=== PATIENT | female | born 1985 | race Caucasian/White ===

== ENCOUNTER 2019-05-09 17:05 | Emergency (ER) | payer OTHER ==
--- OUTSIDE RECORDS SUMMARY | 2019-05-09 17:17 | XMS REPORT | Continuity of Care Document ---
:1985 External Reference #:[id number] Author Name Verna Rolle MD Address [address] [place] [address] [place] [address] Care Team Providers Name Role Phone Joe Moreno MD Care Team Information Dental Office Assistant Unavailable Payers Date Identification Numbers Payment Provider Subscriber Policy Number: [id number] Annamaria Christopher PayID: [id number] [address] [place] [address] Problems Active Problems Provider Date Chronic ulcerative pancolitis Joe Moreno MD Onset: 05/01/2018 Social History Type Date Description Comments Sex Unknown Tobacco Use Start: Unknown Patient has never smoked Smoking Status Reviewed: 04/30/19 Patient has never smoked Allergies, Adverse Reactions, Alerts Active Allergies Reaction Severity Comments Date Imuran GI DISTRESS 05/01/2018 Clindamycin Phosphate ITCHING, RASH,SEVERE 05/01/2018 Gluten GI DISTRESS 05/01/2018 Iodine HIVES 05/01/2018 Penicillin RASH-MILD 05/01/2018 Zyrtec depression,anxiety,blurry vis, 05/01/2018 heart palpitation, breathing trouble,fatigue, menstruation change Medications Active Medications SIG Qnty Indications Ordering Date Provider Dicyclomine HCL as needed Unknown Vitamin D take 1 capsule by Unknown (Ergocalciferol) mouth Two Times Per Week [id number] Capsules [place] 3 Unknown Coq-10 Unknown Zinc 15 Unknown Digestive Enzymes Unknown Multivitamins Unknown Probiotic occasionally Unknown History Medications Zofran 1 tab by mouth 30tabs Joe Moreno, 07/12/2018 - 4mg Tablets every 8 hours as 04/29/2019 needed nausea Prednisone 3 by mouth every QS Joe Moreno, 05/29/2018 - 10mg day x 5 days, then 04/29/2019 Tablets 2 by mouth everyday x 5 days, then 1 by mouth every day x 5 days, 1 by mouth qod x 6 Prednisone 3 po q day x 5 QS Joe Moreno, 05/23/2018 - 10mg days, then 2 po 04/29/2019 Tablets qday x 5 days, then 1 po q day x 5 days, then 1 po qother day x 6 days, then stop Remicade 300 mg iv infusion Joe Moreno, 05/11/2018 - 100mg every 7 weeks slow 07/01/2018 Solution Rec infusion over 4 hours Vital Signs Date Vital Result Comment 04/30/2019 10:13am Height 61 inches 5'1" Weight 123.00 lb BP Systolic 104 mmHg BP Diastolic 74 mmHg Heart Rate 67 /min BMI (Body Mass Index) 23.2 kg/m2 05/01/2018 3:22pm Height 61 inches 5'1" Weight 122.00 lb BP Systolic 116 mmHg BP Diastolic 68 mmHg Heart Rate 68 /min BMI (Body Mass Index) 23.0 kg/m2 Results Test Date Facility Test Result H/L Range Note CBC Auto Diff 08/01/2018 [facility] White Blood Count 3.6 10^3/uL N 3.5-10.8 Red Blood Count 4.12 10^6/uL N 4.00-5.40 Hemoglobin 12.7 g/dL N 12.0-16.0 Hematocrit 36 % N 35-47 Mean Corpuscular Volume 86 fL N 80-97 Mean Corpuscular Hemoglobin 31 pg N 27-31 Mean Corpuscular HGB Conc 36 g/dL N 31-36 Red Cell Distribution Width 12 % N 10.5-15 Platelet Count 178 10^3/uL N 150-450 Mean Platelet Volume 8.8 um3 N 7.4-10.4 Abs Neutrophils 1.4 10^3/uL Low 1.5-7.7 Abs Lymphocytes 1.7 10^3/uL N 1.0-4.8 Abs Monocytes 0.3 10^3/uL N 0-0.8 Abs Eosinophils 0.1 10^3/uL N 0-0.6 Abs Basophils 0 10^3/uL N 0-0.2 Abs Nucleated RBC 0 10^3/uL Granulocyte % 38.5 % N 38-83 Lymphocyte % 48.0 % High 25-47 Monocyte % 9.0 % High 0-7 Eosinophil % 3.7 % N 0-6 Basophil % 0.8 % N 0-2 Nucleated Red Blood Cells % 0.1 Laboratory test finding 08/01/2018 [facility] Iron 111 g/dL N 50-212 C Reactive Protein < 1.00 mg/L N <8.01 Ferritin 31.1 ng/mL N 11-307 Encounters Type Date Location Provider Dx Diagnosis Office Visit 05/01/2018 G[facility]enter[facility] Joe Lopez K51.00 Ulcerative 3:[facility] MD Josh (chronic) pancolitis without complications Z79.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 She seems to be doing pretty well at this time. Her Remicade does seem to wear off a little early. We discussed increasing the dose frequency of the infusion. She would like to stay the course for right now. She does notmake any changes. She is up -to-date on blood work we will obtain that at her next Remicade infusionshe also is up-to-date on colonoscopies. I would like to see her back in approximately 6-9 months.She will call me with any questions concerns or changes. We will work on the prior [id number] Other predatory animal exterminator ( current) drug therapy
[2019-05-09 22:41] LABS: Urine Appearance Cloudy; Urine Bacteria 1+ (Absent); Urine Bilirubin Negative (Negative); Urine Blood 2+ (Negative); Urine Color Yellow; Urine Glucose Negative (Negative); Urine Ketones 2+ (Negative); Urine Nitrite Negative (Negative); Urine Protein Negative (Negative); Urine Red Blood Cell 1+(3-5/hpf) (Absent); Urine Specific Gravity 1.008 (1.010-1.030); Urine Squamous Epithelial Cell Present (Absent); Urine Urobilinogen Negative (Negative); Urine White Blood Cell Trace(0-5/hpf) (Absent)
[2019-05-09 23:19] LABS: Hematocrit 40 % (35-47); Hemoglobin 13.9 g/dL (12.0-16.0); Mean Corpuscular HGB Conc 35 g/dL (31-36); Mean Corpuscular Hemoglobin 31 pg (27-31); Mean Corpuscular Volume 88 fL (80-97); Mean Platelet Volume 9.1 fL (7.4-10.4); Platelet Count 170 10^3/uL (150-450); Red Blood Count 4.57 10^6 /uL (3.70-4.87); Red Cell Distribution Width 13 % (10-15); White Blood Count 2.2 10^3/uL (3.5-10.8)
[2019-05-09 23:36] LABS: ALT 39 U/L (7-52); AST 26 U/L (13-39); Albumin 4.6 g/dL (3.2-5.2); Albumin/Globulin Ratio 1.2 (1-3); Alkaline Phosphatase 62 U/L (34-104); Anion Gap 8 mmol/L (2-11); BUN/Creatinine Ratio 12.3 (8-20); Blood Urea Nitrogen 8 mg/dL (6-24); C Reactive Protein 8.82 mg/L (<8.01); CO2 Carbon Dioxide 24 mmol/L (22-32); Calcium 10.2 mg/dL (8.6-10.3); Chloride 105 mmol/L (101-111); EGFR African American 125.5 (>60); EGFR Non-African American 103.7 (>60); Globulin 3.7 g/dL (2-4); Glucose 105 mg/dL (70-100); Potassium 3.9 mmol/L (3.5-5.0); Sodium 137 mmol/L (135-145); Total Protein 8.3 g/dL (6.4-8.9)
[2019-05-09 23:43] LABS: HCG Pregnancy < 0.60 mIU/mL
[2019-05-10 00:21] LABS: ABS Eosinophils 0.1 10^3/ul (0-0.6); ABS Lymphocytes 1.2 10^3/ul (1.0-4.8); ABS Monocytes 0.4 10^3/ul (0-0.8); ABS Neutrophils 0.5 10^3/ul (1.5-7.7); Eosinophil % 3.4 %; Lymphocyte % 53.3 %; Nucleated Red Blood Cells % 0.1
--- NOTE | 2019-05-10 00:45 | ED ---
Complex/Multi-Sys Presentation - HPI Summary HPI Summary: Patient complains of diffuse abdominal pain 3 days, weakness, fever up to 101 2 days ago, joint pain 2 days ago, fatigue. Patient states she is feeling better today but has been having diarrhea 7-9 times today. Patient told to come to the ED due to routine labs of WBC 2.2 and absolute neutrophils 0.5. Patient has history of ulcerative colitis, Currently taking immunosuppressant entyvio. States this feels like UC flare. Denies cough, sore throat, CP, SOB, N/V/D, change in urine. - History Of Current Complaint Chief Complaint: EDGeneral Time Seen by Provider: 05/09/19 22:53 Hx Obtained From: Patient Onset/Duration: Gradual Onset, Lasting Days Timing: Intermittent, Lasting: Severity Currently: Moderate Severity Initially: Moderate Associated Signs And Symptoms: Positive: Weakness, Abdominal Pain, Fever - Allergies/Home Medications Allergies/Adverse Reactions: Allergies Allergy/AdvReac Type Severity Reaction Status Date / Time cetirizine [From [facility]] Allergy Tachycardia Verified 12/10/18 10:28 clindamycin Allergy Rash Verified 12/10/18 10:28 gluten Allergy Headache Verified 12/10/18 10:28 iodine Allergy Hives Verified 12/10/18 10:28 Penicillins Allergy Rash Verified 12/10/18 10:28 Home Medications: Home Medications Multivitamin [Multivitamins] 1 tab PO DAILY 05/09/19 [History Confirmed 05/09/19 ] PMH/Surg Hx/FS Hx/Imm Hx Endocrine/Hematology History: Denies: Hx Diabetes Cardiovascular History: Denies: Hx Hypertension, Hx Pacemaker/ICD History: Denies: Hx Renal Disease Sensory History: Denies: Hx Hearing Aid Opthamlomology History: Denies: Hx Legally Blind EENT History: Denies: Hx Deafness Neurological History: Denies: Hx Dementia Psychiatric History: Denies: Hx Panic Disorder Infectious Disease History: No Infectious Disease History: Denies: Traveled Outside the [place] in Last 30 Days - Family History Known Family History: Positive: Non-Contributory - Social History Alcohol Use: None Substance Use Type: Reports: None Smoking Status (MU): Never Smoked Tobacco Have You Smoked in the Last Year: No Review of Systems Positive: Fever Eyes: Negative ENT: Negative Cardiovascular: Negative Respiratory: Negative Positive: Abdominal Pain Genitourinary: Negative Musculoskeletal: Negative Skin: Negative Neurological: Negative Psychological: Normal All Other Systems Reviewed And Are Negative: Yes Physical Exam - Summary Physical Exam Summary: Abdomen soft nontender. Triage Information Reviewed: Yes Vital Signs On Initial Exam: Initial Vitals Temp Pulse Resp BP Pulse Ox 99.1 F 84 18 126/72 99 05/09/19 17:09 05/09/19 17:09 05/09/19 17:09 05/09/19 17:09 05/09/19 17:09 Vital Signs Reviewed: Yes Appearance: Positive: Well-Appearing Skin: Positive: Warm Head/Face: Positive: Normal Head/Face Inspection Eyes: Positive: Normal Neck: Positive: Supple Respiratory/Lung Sounds: Positive: Clear to Auscultation Cardiovascular: Positive: Normal Abdomen Description: Positive: Nontender Musculoskeletal: Positive: Normal Neurological: Positive: Normal Psychiatric: Positive: Normal AVPU Assessment: Alert - Dori Coma Scale Best Eye Response: 4 - Spontaneous Best Motor Response: 6 - Obeys Commands Best Verbal Response: 5 - Oriented Coma Scale Total: 15 Diagnostics - Vital Signs Vital Signs Temp Pulse Resp BP Pulse Ox 05/10/19 00:00 78 99 05/09/19 23:40 78 112/72 99 05/09/19 23:10 118/67 05/09/19 23:00 99 100 05/09/19 22:40 79 113/58 99 05/09/19 22:10 88 116/74 99 05/09/19 20:40 99.2 F 91 16 124/71 100 05/09/19 18:49 98.0 F 69 18 126/75 99 05/09/19 17:09 99.1 F 84 18 126/72 99 - Laboratory Lab Results: Lab Results 05/09/19 05/09/19 05/09/19 Range/Units 22:27 23:09 23:09 WBC 2.2 L (3.5-10.8) 10^3/uL RBC 4.57 (3.70-4.87) 10^6 /uL Hgb 13.9 (12.0-16.0) g/dL Hct 40 (35-47) % MCV 88 (80-97) fL MCH 31 (27-31) pg MCHC 35 (31-36) g/dL RDW 13 (10-15) % Plt Count 170 (150-450) 10^3/uL MPV 9.1 (7.4-10.4) fL Neut % (Auto) 24.6 % Lymph % (Auto) 53.3 % [place] % (Auto) 17.6 % Eos % (Auto) 3.4 % Baso % (Auto) 1.1 % Absolute Neuts (auto) 0.5 L* (1.5-7.7) 10^3/ul Absolute Lymphs (auto) 1.2 (1.0-4.8) 10^3/ul Absolute Monos (auto) 0.4 (0-0.8) 10^3/ul Absolute Eos (auto) 0.1 (0-0.6) 10^3/ul Absolute Basos (auto) 0.0 (0-0.2) 10^3/ul Absolute Nucleated RBC 0.0 10^3/ul Nucleated RBC % 0.1 Sodium 137 (135-145) mmol/L Potassium 3.9 (3.5-5.0) mmol/L Chloride 105 (101-111) mmol/L Carbon Dioxide 24 (22-32) mmol/L Anion Gap 8 (2-11) mmol/L BUN 8 (6-24) mg/dL Creatinine 0.65 (0.51-0.95) mg/dL Est GFR ( Amer) 125.5 (>60) Est GFR (Non-Af Amer) 103.7 (>60) BUN/Creatinine Ratio 12.3 (8-20) Glucose 105 H (70-100) mg/dL Lactic Acid (0.5-2.0) mmol/L Calcium 10.2 (8.6-10.3) mg/dL Total Bilirubin 0.60 (0.2-1.0) mg/dL AST 26 (13-39) U/L ALT 39 (7-52) U/L Alkaline Phosphatase 62 (34-104) U/L C-Reactive Protein 8.82 H (<8.01) mg/L Total Protein 8.3 (6.4-8.9) g/dL Albumin 4.6 (3.2-5.2) g/dL Globulin 3.7 (2-4) g/dL Albumin/Globulin Ratio 1.2 (1-3) Lipase 12 (11.0-82.0) U/L Beta HCG, Quant < 0.60 mIU/mL Urine Color Yellow Urine Appearance Cloudy Urine pH 6.0 (5-9) Ur Specific [place] 1.008 L (1.010-1.030) Urine Protein Negative (Negative) Urine Ketones 2+ A (Negative) Urine Blood 2+ A (Negative) Urine Nitrate Negative (Negative) Urine Bilirubin Negative (Negative) Urine Urobilinogen Negative (Negative) Ur Leukocyte Esterase Negative (Negative) Urine WBC (Auto) Trace(0-5/hpf) (Absent) Urine RBC (Auto) 1+(3-5/hpf) A (Absent) Ur Squamous Epith Cells Present A (Absent) Urine Bacteria 1+ A (Absent) Urine Glucose Negative (Negative) 05/09/19 Range/Units 23:09 WBC (3.5-10.8) 10^3/uL RBC (3.70-4.87) 10^6 /uL Hgb (12.0-16.0) g/dL Hct (35-47) % MCV (80-97) fL MCH (27-31) pg MCHC (31-36) g/dL RDW (10-15) % Plt Count (150-450) 10^3/uL MPV (7.4-10.4) fL Neut % (Auto) % Lymph % (Auto) % [place] % (Auto) % Eos % (Auto) % Baso % (Auto) % Absolute Neuts (auto) (1.5-7.7) 10^3/ul Absolute Lymphs (auto) (1.0-4.8) 10^3/ul Absolute Monos (auto) (0-0.8) 10^3/ul Absolute Eos (auto) (0-0.6) 10^3/ul Absolute Basos (auto) (0-0.2) 10^3/ul Absolute Nucleated RBC 10^3/ul Nucleated RBC % Sodium (135-145) mmol/L Potassium (3.5-5.0) mmol/L Chloride (101-111) mmol/L Carbon Dioxide (22-32) mmol/L Anion Gap (2-11) mmol/L BUN (6-24) mg/dL Creatinine (0.51-0.95) mg/dL Est GFR ( Amer) (>60) Est GFR (Non-Af Amer) (>60) BUN/Creatinine Ratio (8-20) Glucose (70-100) mg/dL Lactic Acid 0.8 (0.5-2.0) mmol/L Calcium (8.6-10.3) mg/dL Total Bilirubin (0.2-1.0) mg/dL AST (13-39) U/L ALT (7-52) U/L Alkaline Phosphatase (34-104) U/L C-Reactive Protein (<8.01) mg/L Total Protein (6.4-8.9) g/dL Albumin (3.2-5.2) g/dL Globulin (2-4) g/dL Albumin/Globulin Ratio (1-3) Lipase (11.0-82.0) U/L Beta HCG, Quant mIU/mL Urine Color Urine Appearance Urine pH (5-9) Ur Specific [place] (1.010-1.030) Urine Protein (Negative) Urine Ketones (Negative) Urine Blood (Negative) Urine Nitrate (Negative) Urine Bilirubin (Negative) Urine Urobilinogen (Negative) Ur Leukocyte Esterase (Negative) Urine WBC (Auto) (Absent) Urine RBC (Auto) (Absent) Ur Squamous Epith Cells (Absent) Urine Bacteria (Absent) Urine Glucose (Negative) Result Diagrams: 05/09/19 23:09 05/09/19 23:09 Lab Statement: Any lab studies that have been ordered have been reviewed, and results considered in the medical decision making process. Complex Multi-Symp Course/Dx Course Of Treatment: Patient complains of diffuse abdominal pain 3 days, weakness, fever up to 101 2 days ago, joint pain 2 days ago, fatigue. Patient states she is feeling better today but has been having diarrhea 7-9 times today. Patient told to come to the ED due to routine labs of WBC 2.2 and absolute neutrophils 0.5. Patient has history of ulcerative colitis, Currently taking immunosuppressant entyvio. States this feels like UC flare. Denies cough, sore throat, CP, SOB, N/V/D, change in urine. Vital signs within normal limits. WBC 2.2. Absolute neutrophils 0.5. Labs otherwise unremarkable. Discussed case with GI construction equipment mechanic Dr. Moreno who stated patient could be discharged and follow-up in clinic tomorrow due to physical exam and patient having no active symptoms. - Diagnoses Provider Diagnoses: Diarrhea, Fatigue, Joint pain Discharge - Sign-Out/Discharge Documenting (check all that apply): Patient Departure Patient Received Moderate/Deep Sedation with Procedure: No - Discharge Plan Condition: Stable Disposition: HOME Prescriptions: Ondansetron ODT TAB* [Zofran 4 MG Odt TAB*] 4 mg PO Q8H PRN 4 Days #14 tab.odt PRN Reason: Nausea Patient Education Materials: Ulcerative Colitis (ED) Referrals: Rena Lai, DIE CASTING MACHINE OPERATOR [Primary Care Provider] - Additional Instructions: Follow-up with Dr. Rolle in the morning. Return to the ED for any new or worsening symptoms. - Billing Disposition and Condition Condition: STABLE Disposition: Home
[2019-05-10 00:56] VITALS: BP 127/76
== END 2019-05-10 00:55 | disposition home or self-care (01) ==
LOC: ED 17:05
DX: R19.7 Diarrhea, unspecified (principal); R53.83 Other fatigue; M25.50 Pain in unspecified joint; Z79.899 Other long term (current) drug therapy; Z88.0 Allergy status to penicillin; Z88.1 Allergy status to other antibiotic agents; Z91.041 Radiographic dye allergy status
CPT/HCPCS: 36415; 80053; 81003; 81015; 82270; 83605; 83690; 84702; 85025; 86140; 87040; 87086; 99283

== ENCOUNTER 2019-12-03 10:10 | Inpatient (IN) | payer OTHER ==
--- OUTSIDE RECORDS SUMMARY | 2019-12-03 10:20 | XMS REPORT | Continuity of Care Document ---
:1985 External Reference #:[id number] Author Name Verna Rolle MD Address [address] [place] [id number] Care Team Providers Name Role Phone Rena Lai NP Care Team Information Loss Prevention Manager [phone] Problems Active Problems Provider Date Chronic ulcerative pancolitis Joe Moreno MD Onset: 05/01/2018 Social History Type Date Description Comments Sex Unknown Tobacco Use Start: Unknown Patient has never smoked Smoking Status Reviewed: 08/05/19 Patient has never smoked Allergies, Adverse Reactions, Alerts Active Allergies Reaction Severity Comments Date Imuran GI DISTRESS 05/01/2018 Clindamycin Phosphate ITCHING, RASH,SEVERE 05/01/2018 Gluten GI DISTRESS 05/01/2018 Iodine HIVES 05/01/2018 Penicillin RASH-MILD 05/01/2018 Zyrtec depression,anxiety,blurry vis, 05/01/2018 heart palpitation, breathing trouble,fatigue, menstruation change Medications Active Medications SIG Qnty Indications Ordering Date Provider Tramadol HCL Take 1 tablet every 20tabs Verna 08/05/2019 50mg 6 hours as needed MD Sariah Tablets for moderate to severe pain Entyvio every 6 weeks Verna 07/15/2019 300mg Solution MD Sariah Rec Dicyclomine HCL as needed Unknown Vitamin D take 1 capsule by Unknown (Ergocalciferol) mouth Two Times Per Week [id number] Capsules [place] 3 Unknown Coq-10 Unknown Zinc 15 Unknown Digestive Enzymes Unknown Multivitamins Unknown Probiotic occasionally Unknown History Medications Suprep Bowel Prep Kit as directed 1units Verna 06/25/2019 - MD Sariah 08/05/2019 17.5-3.13-1.6GM/177ML Solution Immunizations Description No Information Available Vital Signs Date Vital Result Comment 08/05/2019 2:34pm Height 61 inches 5'1" Weight 120.00 lb BP Systolic 121 mmHg BP Diastolic 75 mmHg Heart Rate 76 /min BMI (Body Mass Index) 22.7 kg/m2 04/30/2019 10:13am Height 61 inches 5'1" Weight 123.00 lb BP Systolic 104 mmHg BP Diastolic 74 mmHg Heart Rate 67 /min BMI (Body Mass Index) 23.2 kg/m2 Results Test Acquired Date Facility Test Result H/L Range Note Laboratory test 08/08/2019 [facility] Calprotectin <15.6 1, 2 finding g/G Laboratory test 07/11/2019 [facility] Surgical SEE RESULT 3, 4 finding Pathology Order BELOW CBC Auto Diff 05/16/2019 [facility] White Blood Count 6.1 Normal 3.5-10.8 10^3/uL Red Blood Count 4.30 10^6/uL Normal 3.70-4.87 Hemoglobin 13.1 g/dL Normal 12.0-16.0 Hematocrit 37 % Normal 35-47 Mean Corpuscular Volume 87 fL Normal 80-97 Mean Corpuscular Hemoglobin 31 pg Normal 27-31 Mean Corpuscular HGB Conc 35 g/dL Normal 31-36 Red Cell Distribution Width 12 % Normal 10-15 Platelet Count 221 10^3/uL Normal 150-450 Mean Platelet Volume 9.7 fL Normal 7.4-10.4 Abs Neutrophils 2.6 10^3/uL Normal 1.5-7.7 Abs Lymphocytes 2.9 10^3/uL Normal 1.0-4.8 Abs Monocytes 0.5 10^3/uL Normal 0-0.8 Abs Eosinophils 0.2 10^3/uL Normal 0-0.6 Abs Basophils 0.0 10^3/uL Normal 0-0.2 Abs Nucleated RBC 0.0 10^3/uL Granulocyte % 41.9 % Lymphocyte % 46.9 % Monocyte % 7.8 % Eosinophil % 2.8 % Basophil % 0.6 % Nucleated Red Blood Cells % 0.2 CBC W/Auto Differential(!) 05/11/2019 [facility] White Blood 2.6 10^3/uL Low 3.5 -10.8 Count Red Blood Count 4.50 10^6/uL Normal 3.70-4.87 Hemoglobin 14.0 g/dL Normal 12.0-16.0 Hematocrit 39 % Normal 35-47 Mean Corpuscular Volume 87 fL Normal 80-97 Mean Corpuscular Hemoglobin 31 pg Normal 27-31 Mean Corpuscular HGB Conc 36 g/dL Normal 31-36 Red Cell Distribution Width 12 % Normal 10-15 Platelet Count 175 10^3/uL Normal 150-450 Mean Platelet Volume 9.8 fL Normal 7.4-10.4 Abs Neutrophils 0.7 10^3/uL Critical low 1.5-7.7 5 Abs Lymphocytes 1.4 10^3/uL Normal 1.0-4.8 Abs Monocytes 0.4 10^3/uL Normal 0-0.8 Abs Eosinophils 0.1 10^3/uL Normal 0-0.6 Abs Basophils 0.0 10^3/uL Normal 0-0.2 Abs Nucleated RBC 0.0 10^3/uL Granulocyte % 26.9 % Lymphocyte % 53.0 % Monocyte % 14.8 % Eosinophil % 4.3 % Basophil % 1.0 % Nucleated Red Blood Cells % 0.1 Herpes Simplex Type 1&2 05/11/2019 [facility] Herpes Simplex Virus I Negative Negative Igg IgG AB Herpes Simplex Virus II IgG AB Negative Negative 6 Laboratory 05/11/2019 [facility] CMV By PCR Undetected Undetected 7 test finding IU/mL Ebv Dna 05/11/2019 [facility] [place] Undetected Undetected 8 Virus Dna (PCR) IU/mL Laboratory 05/09/2019 [facility] Calprotectin 372 g/G Abnormal 9, 10 test finding 1 [id number] 2 REFERENCE VALUE <=50.0 (Normal) Test Performed by: [facility] [address] [place] [address] Nutritional Services Host: Sánchez Mckenzie M.D. Ph.D.; CLIA# [id number] SEE RESULT BELOW Name: CASIE CHRISTOPHER : [address]: Verna Rolle MD Acct: [id number] Unit: [id number] AGE: 34 Location: [facility] Re07/11/19 SEX: F Status: DEP REF SPEC: [id number] KYLAH: 07/11/19 [facility] DR: Verna De La Fuente MD REQ: [id number] RECD: 07/11/19 STATUS: IRVIN CRAIG DR: Rena Lai GOLD LEAF GILDER _ ORDERED: LEVEL 4/5 COMMENTS: [id number] FINAL DIAGNOSIS 1. Colon, right, biopsy: -- Chronic, inactive colitis. -- Dysplasia is absent. 2. Colon, transverse, biopsy: -- Chronic, active colitis. -- Dysplasia is absent. 3. Colon, descending, biopsy: -- Chronic, inactive colitis. -- Dysplasia is absent. 4. Colon, sigmoid, biopsy: -- Chronic, inactive colitis. -- Dysplasia is absent. 5. Colon, rectum, biopsy: -- Chronic, active colitis. -- Dysplasia is absent. COMMENT: Histologic sections from throughout the colon show crypt architectural distortion and increased lamina propria inflammatory infiltrate cellularity. Acute cryptitis is seen in sections from the transverse and rectum. Granulomata are not seen. Dysplasia is absent. The findings are those of an inflammatory bowel disease and are compatible with the patient's known history of ulcerative colitis. CLINICAL HISTORY Screening/Surveillance for malignancy in asymptomatic patient; ulcerative colitis CONTINUED ON NEXT PAGE DEPARTMENT OF PATHOLOGY, [address] [place] [address] Elian Callejas M.D. Director [facility] # [id number] POST-OPERATIVE DIAGNOSIS Colonoscopy: to terminal ileum; biopsy approximately 15 cm ??? anus mild erythema bluming vascularity GROSS DESCRIPTION 1. The specimen is received in formalin labeled, Right Colon Biopsy, and consists of a 0.6 x 0.4 by up to 0.2 cm aggregate of acevedo-pink irregular soft tissue fragments which is submitted entirely in one cassette. 2. The specimen is received in formalin labeled, Transverse Colon Biopsy, and consists of two acevedo irregular soft tissue fragments measuring 0.2 x 0.2 x 0.2 cm and 0.6 x 0.2 x 0.1 cm which are submitted entirely in one cassette. 3. The specimen is received in formalin labeled, Descending Colon Biopsy, and consists of a 0.6 x 0.4 up to 0.2 cm aggregate of acevedo irregular soft tissue fragments which is submitted entirely in one cassette. 4. The specimen is received in formalin labeled, Sigmoid Colon Biopsy, and consists of a 0.7 x 0.4 x 0.2 cm aggregate of acevedo-pink irregular soft tissue fragments which is submitted entirely in one cassette. 5. The specimen is received in formalin labeled, Rectal Biopsy, and consists of a 0.8 x 0.8 x 0.1 cm aggregate of acevedo-red irregular soft tissue fragments which is submitted entirely in one cassette. Signed by and Reported on: Katiuska Zaman MD 07/12/19 1138 END OF REPORT DEPARTMENT OF PATHOLOGY, [address] [place] [address] Elian Callejas M.D. Director [facility] # [id number] SEE RESULT BELOW Name: CASIE CHRISTOPHER : [address]: Verna Rolle MD Acct: [id number] Unit: [id number] AGE: 34 Location: [facility] Re07/11/19 SEX: F Status: DEP REF SPEC: [id number] KYLAH: 07/11/[address]: Verna De La Fuente MD REQ: [id number] RECD: 07/11/19-1314 STATUS: IRVIN CRAIG DR: Rena Lai GOLD LEAF GILDER _ ORDERED: LEVEL 4/5 COMMENTS: [id number] FINAL DIAGNOSIS 1. Colon, right, biopsy: -- Chronic, inactive colitis. -- Dysplasia is absent. 2. Colon, transverse, biopsy: -- Chronic, active colitis. -- Dysplasia is absent. 3. Colon, descending, biopsy: -- Chronic, inactive colitis. -- Dysplasia is absent. 4. Colon, sigmoid, biopsy: -- Chronic, inactive colitis. -- Dysplasia is absent. 5. Colon, rectum, biopsy: -- Chronic, active colitis. -- Dysplasia is absent. COMMENT: Histologic sections from throughout the colon show crypt architectural distortion and increased lamina propria inflammatory infiltrate cellularity. Acute cryptitis is seen in sections from the transverse and rectum. Granulomata are not seen. Dysplasia is absent. The findings are those of an inflammatory bowel disease and are compatible with the patient's known history of ulcerative colitis. CLINICAL HISTORY Screening/Surveillance for malignancy in asymptomatic patient; ulcerative colitis CONTINUED ON NEXT PAGE DEPARTMENT OF PATHOLOGY, [facility] [place], [place] [address] Elian Callejas M.D. Director [facility] # [id number] POST-OPERATIVE DIAGNOSIS Colonoscopy: to terminal ileum; biopsy approximately 15 cm ??? anus mild erythema bluming vascularity GROSS DESCRIPTION 1. The specimen is received in formalin labeled, Right Colon Biopsy, and consists of a 0.6 x 0.4 by up to 0.2 cm aggregate of acevedo-pink irregular soft tissue fragments which is submitted entirely in one cassette. 2. The specimen is received in formalin labeled, Transverse Colon Biopsy, and consists of two acevedo irregular soft tissue fragments measuring 0.2 x 0.2 x 0.2 cm and 0.6 x 0.2 x 0.1 cm which are submitted entirely in one cassette. 3. The specimen is received in formalin labeled, Descending Colon Biopsy, and consists of a 0.6 x 0.4 up to 0.2 cm aggregate of acevedo irregular soft tissue fragments which is submitted entirely in one cassette. 4. The specimen is received in formalin labeled, Sigmoid Colon Biopsy, and consists of a 0.7 x 0.4 x 0.2 cm aggregate of acevedo-pink irregular soft tissue fragments which is submitted entirely in one cassette. 5. The specimen is received in formalin labeled, Rectal Biopsy, and consists of a 0.8 x 0.8 x 0.1 cm aggregate of acevedo-red irregular soft tissue fragments which is submitted entirely in one cassette. Signed by and Reported on: Katiuska Zaman MD 07/12/19 1138 END OF REPORT DEPARTMENT OF PATHOLOGY, [facility] [place], [place] [address] Elian Callejas M.D. Director [facility] # [id number] 5 Consistent with Previous Results Reported on 05/09/19 Critical Result NE#:0.7 Called to and read back by DR MESA at: 05/11/2019 14:31:50 by:[id number] 6 Test Performed by: [facility] [place] [address] 7 Result in log IU/mL is Undetected. ADDITIONAL INFORMATION The quantification range of this assay is 35 to 10,000,000 IU/mL (1.54 log to 7.00 log IU/mL). Testing was performed using the makayla CMV test ([employer] with the makayla 6800 System. Test Performed by: [facility] [place] [address] 8 Result in log IU/mL is Undetected. EBV DNA is not detected. ADDITIONAL INFORMATION This laboratory-developed, real-time PCR assay has a quantification range of 100 to 5,000,000 IU/mL (2.00 log IU/mL to 6.70 log IU/mL). This test was developed using an analyte specific reagent. Its performance characteristics were determined by [facility] in a manner consistent with CLIA requirements. This test has not been cleared or approved by the U.S. Food and Drug Administration. Test Performed by: [facility] - [address] [address] 9 [id number] Interpretation: Abnormal (>120.0 mcg/g) REFERENCE VALUE <=50.0 (Normal) Test Performed by: [place] [address] Procedures Date Code Description Status 07/11/2019 07427 Moderate Sedation Services; Same Phys Each Additional 15 Completed Mins 07/11/2019 58416 Moderate Sedation Services; Same Phys Intl 15 Mins; PT >= Completed 5 Years 07/11/2019 16376 Colonscopy+Biopsy Completed Medical Devices Description No Information Available Encounters Type Date Location Provider Dx Diagnosis Office Visit 08/05/2019 Gastroenterology Verna K51.00 Ulcerative 2:30p [facility] Sariah (chronic) pancolitis without complications M13.89 Other specified arthritis, multiple sites Assessments Date Code Description Provider 08/05/2019 K51.00 Ulcerative (chronic) pancolitis without Verna De La Fuente MD complications 08/05/2019 M13.89 Other specified arthritis, multiple sites Verna De La Fuente MD 07/11/2019 K51.90 Ulcerative colitis, unspecified, without Verna De La Fuente MD complications 05/16/2019 D70.9 Neutropenia, unspecified Verna Rolle MD 05/16/2019 K51.00 Ulcerative (chronic) pancolitis without Verna De La Fuente MD complications Plan of Treatment Future Appointment(s):11/18/2019 2:30 pm - [facility]08/05/2019 - Verna Rolle MDK51.00 Ulcerative (chronic) pancolitis without dlaitdlrgmdldS76.89 Other specified arthritis, multiple sites Functional Status Description No Information Available Mental Status Description No Information Available Referrals Description No Information Available
--- OUTSIDE RECORDS SUMMARY | 2019-12-03 10:21 | XMS REPORT | Continuity of Care Document ---
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 [phone] Problems Description No Information Available Social History Type Date Description Comments Sex Unknown Tobacco Use Start: Unknown Never Smoked Cigarettes Smoking Status Reviewed: 10/08/19 Never Smoked Cigarettes ETOH Use Denies alcohol use Tobacco Use Start: Unknown Patient has never smoked Recreational Drug Use Denies Drug Use Exercise Type/Frequency Exercises sporadically walking, yoga Allergies, Adverse Reactions, Alerts Active Allergies Reaction Severity Comments Date Penicillin 11/19/[address] Dye Only 11/19/2018 Clindamycin 11/19/2018 Zyrtec 11/19/2018 Gluten 11/19/2018 Imuran 12/14/2018 Medications Active Medications SIG Qnty Indications Ordering Provider Date Loseasonique one tabelt by 90tabs María Elena Mathew MD 09/06/2019 mouth daily 0.1-0.02&0.01mg Tablets Entyvio infuse 300mg iv Unknown 300mg Solution per infusion Rec guide lines every [address] Baxter Zinc 2 tablets per day Unknown Carnosire D 1000 one capsule by Unknown 1000Unit Tablets mouth daily Al Foods Women's daily Unknown Daily Vitamin [place] 3 Unknown 1000mg Capsules Probiotic 1 by mouth every Unknown Capsules day Digestive Enzyme Unknown Co Q 10 1 by mouth every Unknown 60mg Capsules day as needed Immunizations Description No Information Available Vital Signs Date Vital Result Comment 10/08/2019 7:48am Height 61.4 inches 5'1.40" Weight 121.00 lb Heart Rate 72 /min BP Systolic 102 mmHg BP Diastolic 71 mmHg Body Temperature 97.1 F Pain Level 5 O2 % BldC Oximetry 100 % BMI (Body Mass Index) 22.6 kg/m2 07/05/2019 2:03pm Height 61.4 inches 5'1.40" Weight 117.00 lb Heart Rate 70 /min BP Systolic 96 mmHg BP Diastolic 64 mmHg O2 % BldC Oximetry 100 % BMI (Body Mass Index) 21.8 kg/m2 Last Menstrual Period [id number] Results Test Acquired Date Facility Test Result H/L Range Note Laboratory test 07/05/2019 [facility] Cytology SEE RESULT [address] [place] [address] [phone] Thyroid Panel 06/28/2019 [facility] Free T4 (Free 1.07 ng/dL Normal 0.61-1.[address] [place]roxine) [place] [address] [phone] Thyroxine 9.82 g/dL Normal 6.09-12.23 TSH (Thyroid Stim Horm) 1.24 mcIU/mL Normal 0.34-5.60 Laboratory test 06/28/2019 [facility] Thyroglobulin AB 187.1 High <4.[address] IU/[place] [address] [phone] T3 Free 3.20 pg/mL Normal 2.5-3.9 T3 Reverse 23 ng/dL 10-24 2 T3 Total 126 ng/dL Normal 87-178 CRP High Sensitivity 4.69 mg/L High <2.00 Laboratory test 05/09/2019 [facility] C Reactive 12.27 mg/L High <8.01 [address] [place] [address] [phone] CBC Auto Diff 05/09/2019 [facility] White Blood 2.0 Low 3.5- 10.[address] Count 10^3/[place] [address] [phone] Red Blood Count 4.43 10^6/uL Normal 3.70-4.87 Hemoglobin 13.7 g/dL Normal 12.0-16.0 Hematocrit 39 % Normal 35-47 Mean Corpuscular Volume 87 fL Normal 80-97 Mean Corpuscular Hemoglobin 31 pg Normal 27-31 Mean Corpuscular HGB Conc 36 g/dL Normal 31-36 Red Cell Distribution Width 12 % Normal 10-15 Platelet Count 164 10^3/uL Normal 150-450 Mean Platelet Volume 9.7 fL Normal 7.4-10.4 Abs Neutrophils 0.4 10^3/uL Critical low 1.5-7.7 4 Abs Lymphocytes 1.1 10^3/uL Normal 1.0-4.8 Abs Monocytes 0.3 10^3/uL Normal 0-0.8 Abs Eosinophils 0.1 10^3/uL Normal 0-0.6 Abs Basophils 0.0 10^3/uL Normal 0-0.2 Abs Nucleated RBC 0.0 10^3/uL Granulocyte % 18.6 % Lymphocyte % 57.2 % Monocyte % 17.2 % Eosinophil % 6.2 % Basophil % 0.8 % Nucleated Red Blood Cells % 0.3 Comp Metabolic 05/09/2019 [facility] Sodium 139 mmol/L Normal 135-[address] [place] [address] [phone] Potassium 3.8 mmol/L Normal 3.5-5.0 Chloride 107 mmol/L Normal 101-111 Co2 Carbon Dioxide 24 mmol/L Normal 22-32 Anion Gap 8 mmol/L Normal 2-11 Glucose 89 mg/dL Normal 70-100 Blood Urea Nitrogen 12 mg/dL Normal 6-24 Creatinine 0.57 mg/dL Normal 0.51-0.95 BUN/Creatinine Ratio 21.1 High 8-20 Calcium 10.1 mg/dL Normal 8.6-10.3 Total Protein 7.7 g/dL Normal 6.4-8.9 Albumin 4.4 g/dL Normal 3.2-5.2 Globulin 3.3 g/dL Normal 2-4 Albumin/Globulin Ratio 1.3 Normal 1-3 Total Bilirubin 0.70 mg/dL Normal 0.2-1.0 Alkaline Phosphatase 63 U/L Normal 34-104 Alt 37 U/L Normal 7-52 Ast 27 U/L Normal 13-39 Egfr Non- 120.7 >60 Egfr 146.1 >60 5 Laboratory test 05/09/2019 [facility] Pathologist Review (SEE NOTE) [address] [place] [address] [phone] Laboratory test 04/23/2019 [facility] Progesterone 7.2 ng/mL [address] [place] [address] [phone] Estradiol 124 pg/mL 8 Testosterone Free 04/23/2019 [facility] Free 0.18 0.06-1.00 9 & Total [address] Testosterone ng/[place] [address] ng/dl [phone] Testosterone 14 ng/dL 8-60 10 1 SEE RESULT BELOW Name: CASIE CHRISTOPHER : [address]: María Elena Mathew MD Acct: [id number] Unit: [id number] AGE: 34 Location: [facility] Re07/05/19 SEX: F Status: REG REF SPEC: [id number] KYLAH: 07/05/[address]: María Elena Mathew MD REQ: [id number] RECD: 07/05/19 STATUS: SOUT _ ORDERED: TP IMAGE ANALYS, HPV/Thin Prep, HPV 16/18 GENE COMMENTS: [id number] Negative for Intraepithelial lesion or Malignancy Date Time Test Result Flag (u) Normal Range 07/05/191446 HPV NOREEN RFLX GE Negative Negative The high-risk HPV types detected by the assay include: 16, 18, 31, 33, 35, 39, 45, 51, 52, 56, 58, 59, 66, and 68. A. Ectocervical/Endocervical Specimen Adequacy: Satisfactory of evaluation Transformation zone component identified Patient Information: HPV: High risk HPV RNA testing regardless of pap results. HPV 16/18 Genotype Reflex Actual Specimen Date: 07/05/19 Last Menstrual Date: 06/18/19 ?: N Post Menopausal?: N Hysterectomy?: N Signed by and Reported on: ELLEN Berman(ASC) [id number] This Pap test was evaluated with the assistance of the [employer] Test Imaging System. Due to cytologic findings at the yard manager microscope, comprehensive manual rescreening by a Hunter Trapper may be required. The Pap Smear is a screening test designed to aid in the detection of premalignant and malignant conditions of the uterine cervix. It is not a diagnostic procedure and should not be used as the sole means of detecting cervical cancer. Both false- positive and false- negative reports do occur. Depending on your risk status, a Pap smear should be obtained and evaluated every 1-3 years. END OF REPORT DEPARTMENT OF PATHOLOGY, [address] [place] [address] Elian Callejas M.D. Director JORDI # [id number] 2 ADDITIONAL INFORMATION This test was developed and its performance characteristics determined by [facility] in a manner consistent with CLIA requirements. This test has not been cleared or approved by the U.S. Food and Drug Administration. Test Performed by: [facility] [address], [place] [address] Gold Beater: Sánchez Mckenzie M.D. Ph.D.; CLIA# [id number] 3 discussed & reviewed with patient 4 Verbal to Eli Washington by [id number] at 1424 on 05/09/19.Results read back accurately 5 Because ethnic data is not always readily available, this report includes an eGFR for both -Americans and non- Americans. The National Kidney Disease Education Program (NKDEP) does not endorse the use of the MDRD equation for patients that are not between the ages of 18 and 70, are , have extremes of body size, muscle mass, or nutritional status, or are non- or non-. According to the National Kidney Foundation, irrespective of diagnosis, the stage of the disease is based on the level of kidney function: Stage Description GFR(mL/min/1.73 m(2)) 1 Kidney damage with normal or decreased GFR 90 2 Kidney damage with mild decrease in GFR 60-89 3 Moderate decrease in GFR 30-59 4 Severe decrease in GFR 15-29 5 Kidney failure <15 (or dialysis) 6 Severe neutropenia noted. No blasts noted. Additional studies as clinically warranted. Reviewed by Dr. Callejas 7 Female reference ranges for Progesterone: Follicular phase.......0.3 - 1.5 ng/ml Mid-luteal phase.......5.2 - 18.5 ng/ml Postmenopausal.........< 0.8 ng/ml 1st trimester.........4.7 - 50.0 ng/ml 2nd trimester.........19.4 - 45.3 ng/ml 8 Estradiols <40 pg/mL are sent to a reference lab for low range testing. Postmenopausal Females < 20 Ovulating females: by day in cycle relative to LH Peak Follicular phase - 12 10-50 - 4 60-200 Mid-cycle - 1 120-375 Luteal phase + 2 50-155 + 6 60-260 + 12 15-115 9 ADDITIONAL INFORMATION Testing performed by [facility]. This test was developed and its performance characteristics determined by [facility] in a manner consistent with CLIA requirements. This test has not been cleared or approved by the U.S. Food and Drug Administration. 10 ADDITIONAL INFORMATION Testing performed by Liquid Chromatography-Tandem Mass Spectrometry (LC-MS/MS). This test was developed and its performance characteristics determined by [facility] in a manner consistent with CLIA requirements. This test has not been cleared or approved by the U.S. Food and Drug Administration. Test Performed by: [facility] - [address] [address] Procedures Description No Information Available Medical Devices Description No Information Available Encounters Type Date Location Provider Dx Diagnosis Office Visit 06/28/2019 [facility] Trudy Cramer, K51.918 Ulcerative colitis, 10:00a [facility] [employer] unspecified with other complication A04.8 Other specified bacterial intestinal infections R53.83 Other fatigue Office Visit 05/09/2019 10:00a [facility] Trudy Cramer, N94.3 Premenstrual [facility] [employer] tension syndrome A04.8 Other specified bacterial intestinal infections Assessments Date Code Description Provider 10/08/2019 K51.918 Ulcerative colitis, unspecified with other Gab Salas MD complication 10/08/2019 M06.4 Inflammatory polyarthropathy Gab Salas MD 10/08/2019 Z79.899 Other chcf (current) drug therapy Gab Salas MD 10/08/2019 R53.83 Other fatigue Gab Salas MD 07/05/2019 Z01.419 Encounter for gynecological examination María Elena Mathew MD (general) (routine) without abnormal findings 07/05/2019 K51.918 Ulcerative colitis, unspecified with other María Elena Mathew MD complication 07/05/2019 Z11.51 Encounter for screening for human María Elena Mathew MD papillomavirus (HPV) 06/28/2019 K51.918 Ulcerative colitis, unspecified with other Trudy Cramer, [employer] complication 06/28/2019 A04.8 Other specified bacterial intestinal Trudy Cramer, [employer] infections 06/28/2019 R53.83 Other fatigue Trudy Cramer, [employer] 05/09/2019 N94.3 Premenstrual tension syndrome Trudy Cramer, [employer] 05/09/2019 A04.8 Other specified bacterial intestinal Trudy Burch, [employer] MAP infections Plan of Treatment Future Appointment(s):12/03/2019 8:00 am - Gab Salas MD at [facility]10/08/2019 - Gab Salas MDK51.918 Ulcerative colitis , unspecified with other complicationFollow up:8 seufkQ63.4 Inflammatory vqklgsvrhhajpdnS97.899 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 Thank you. [address] [place], [place] [id number] [phone]
[2019-12-03 10:46] LABS: Hematocrit 39 % (35-47); Hemoglobin 13.8 g/dL (12.0-16.0); Mean Corpuscular HGB Conc 35 g/dL (31-36); Mean Corpuscular Hemoglobin 31 pg (27-31); Mean Corpuscular Volume 87 fL (80-97); Mean Platelet Volume 9.1 fL (7.4-10.4); Platelet Count 165 10^3/uL (150-450); Red Blood Count 4.46 10^6 /uL (3.70-4.87); Red Cell Distribution Width 12 % (10-15); White Blood Count 1.8 10^3/uL (3.5-10.8)
[2019-12-03 10:53] LABS: ABS Neutrophils 0.6 10^3/ul (1.5-7.7)
[2019-12-03 11:06] LABS: ALT 18 U/L (7-52); AST 19 U/L (13-39); Albumin 4.4 g/dL (3.2-5.2); Albumin/Globulin Ratio 1.3 (1-3); Alkaline Phosphatase 55 U/L (34-104); Anion Gap 9 mmol/L (2-11); BUN/Creatinine Ratio 12.3 (8-20); Blood Urea Nitrogen 8 mg/dL (6-24); C Reactive Protein 14.92 mg/L (<8.01); CO2 Carbon Dioxide 23 mmol/L (22-32); Calcium 9.6 mg/dL (8.6-10.3); Chloride 104 mmol/L (101-111); EGFR African American 125.5 (>60); EGFR Non-African American 103.7 (>60); Globulin 3.4 g/dL (2-4); Glucose 108 mg/dL (70-100); Potassium 3.8 mmol/L (3.5-5.0); Sodium 136 mmol/L (135-145); Total Protein 7.8 g/dL (6.4-8.9)
[2019-12-03 11:11] LABS: HCG Pregnancy < 0.60 mIU/mL
[2019-12-03 11:52] LABS: ABS Lymphocytes 0.8 10^3/ul (1.0-4.8); ABS Monocytes 0.4 10^3/ul (0-0.8); Eosinophil % 1.6 %; Lymphocyte % 42.1 %; Nucleated Red Blood Cells % 0.1
--- NOTE | 2019-12-03 14:25 | ED ---
Abdominal Pain/Female - HPI Summary HPI Summary: The patient is a 34 year-old female presenting to [facility] with a chief complaint of low abdominal pain and rectal bleeding worsening throughout the night. She reports a history of ulcerative colitis, and she believes she is having a flare- up as these symptoms are typical for her. She endorses nausea and vomiting improved since yesterday, fevers, and decreased oral intake. Symptoms currently rated 8/10 in severity. She denies any urinary symptoms. She is currently on Entyvio, but she doesnt think that is it helping. She was previously on steroids but has stopped them since starting the immunosuppressant. She has a history of low white count in the past. She has never needed a blood transfusion in the past, but she has been admitted for UC before. She follows with Dr. Rolle from GI. No history of diabetes, GERD, SBO, abdominal surgery. Past medical history including PACs. Nonsmoker, no EtOH, no substance use. Medications reviewed. Allergies noted. - History of Current Complaint Chief Complaint: EDAbdPain Stated Complaint: RECTAL BLEEDING/PAIN PER PT Time Seen by Provider: 12/03/19 14:14 Hx Obtained From: Patient Onset/Duration: Sudden Onset, Lasting Hours, Still Present Severity Initially: Mild Severity Currently: Moderate Pain Intensity: 8 Pain Scale Used: 0-10 Numeric Location: Other - lower Radiates: No Character: Cramping Aggravating Factor(s): Nothing Alleviating Factor(s): Nothing Associated Signs and Symptoms: Positive: Fever, Decreased Appetite, Nausea, Vomiting, Other: - rectal bleeding. Negative: Urinary Symptoms Allergies/Adverse Reactions: Allergies Allergy/AdvReac Type Severity Reaction Status Date / Time cetirizine [From Zyrtec] Allergy Tachycardia Verified 12/03/19 14:32 clindamycin Allergy Rash Verified 12/03/19 14:32 gluten Allergy Headache Verified 12/03/19 14:32 Penicillins Allergy Rash Verified 12/03/19 14:32 diphenhydramine AdvReac Severe Extreme Verified 12/03/19 14:32 [From Benadryl] sedation CT dye Allergy Hives Uncoded 12/03/19 14:32 Home Medications: Home Medications Cholecalciferol TAB* [Vitamin D TAB*] 1,000 unit PO DAILY 12/03/19 [History Confirmed 12/03/19] Dicyclomine CAP* [Bentyl CAP*] 10 - 20 mg PO QID PRN 12/03/19 [History Confirmed 12/03/19] Omeprazole CAP (NF) [Prilosec CAP* 20 MG] 20 mg PO DAILY 12/03/19 [History Confirmed 12/03/19] PMH/Surg Hx/FS Hx/Imm Hx Endocrine/Hematology History: Denies: Hx Diabetes Cardiovascular History: Reports: Other Cardiovascular Problems/Disorders - PACs Denies: Hx Hypertension, Hx Pacemaker/ICD GI History: Reports: Other GI Disorders - ulcerative colitis Denies: Hx Gastroesophageal Reflux Disease History: Denies: Hx Renal Disease Sensory History: Denies: Hx Hearing Aid Psychiatric History: Denies: Hx Panic Disorder - Surgical History Surgical History: None Surgery Procedure, Year, and Place: none Infectious Disease History: No Infectious Disease History: Denies: Traveled Outside the [place] in Last 30 Days - Family History Known Family History: Negative: Hypertension, Diabetes - Social History Alcohol Use: None Hx Substance Use: No Substance Use Type: Reports: None Hx Tobacco Use: No Smoking Status (MU): Never Smoked Tobacco Have You Smoked in the Last Year: No Review of Systems Positive: Fever Positive: Abdominal Pain, Vomiting, Nausea, Other - rectal bleeding, decreased appetite Positive: no symptoms reported All Other Systems Reviewed And Are Negative: Yes Physical Exam - Summary Physical Exam Summary: Constitutional: Well-developed, Well-nourished, Alert. (-) Distressed Skin: Warm, Dry HENT: Normocephalic; Atraumatic Eyes: Conjunctiva normal Neck: Musculoskeletal ROM normal neck. (-) JVD, (-) Stridor, (-) Tracheal deviation Cardio: Rhythm regular, rate normal, Heart sounds normal; Intact distal pulses; The pedal pulses are 2+ and symmetric. Radial pulses are 2+ and symmetric. (-) Murmur Pulmonary/Chest wall: Effort normal. (-) Respiratory distress, (-) Wheezes, (-) Rales Abd: Soft, (+) Low tenderness to palpation, (-) Distension, (-) Guarding, (-) Rebound Musculoskeletal: (-) Edema Lymph: (-) Cervical adenopathy Neuro: Alert, Oriented x3 Psych: Mood and affect Normal Triage Information Reviewed: Yes Vital Signs On Initial Exam: Initial Vitals Temp Pulse Resp BP Pulse Ox 97.9 F 81 18 136/79 100 12/03/19 10:12 12/03/19 10:12 12/03/19 10:12 12/03/19 10:12 12/03/19 10:12 Vital Signs Reviewed: Yes Procedures - Sedation Patient Received Moderate/Deep Sedation with Procedure: No Diagnostics - Vital Signs Vital Signs Temp Pulse Resp BP Pulse Ox 12/03/19 12:00 98.7 F 80 18 133/66 100 12/03/19 10:12 97.9 F 81 18 136/79 100 - Laboratory Lab Results: Lab Results 12/03/19 12/03/19 Range/Units 10:37 10:37 WBC 1.8 L (3.5-10.8) 10^3/uL RBC 4.46 (3.70-4.87) 10^6 /uL Hgb 13.8 (12.0-16.0) g/dL Hct 39 (35-47) % MCV 87 (80-97) fL MCH 31 (27-31) pg MCHC 35 (31-36) g/dL RDW 12 (10-15) % Plt Count 165 (150-450) 10^3/uL MPV 9.1 (7.4-10.4) fL Neut % (Auto) 33.0 % Lymph % (Auto) 42.1 % [place] % (Auto) 22.7 % Eos % (Auto) 1.6 % Baso % (Auto) 0.6 % Absolute Neuts (auto) 0.6 L* (1.5-7.7) 10^3/ul Absolute Lymphs (auto) 0.8 L (1.0-4.8) 10^3/ul Absolute Monos (auto) 0.4 (0-0.8) 10^3/ul Absolute Eos (auto) 0.0 (0-0.6) 10^3/ul Absolute Basos (auto) 0.0 (0-0.2) 10^3/ul Absolute Nucleated RBC 0.0 10^3/ul Nucleated RBC % 0.1 Sodium 136 (135-145) mmol/L Potassium 3.8 (3.5-5.0) mmol/L Chloride 104 (101-111) mmol/L Carbon Dioxide 23 (22-32) mmol/L Anion Gap 9 (2-11) mmol/L BUN 8 (6-24) mg/dL Creatinine 0.65 (0.51-0.95) mg/dL Est GFR ( Amer) 125.5 (>60) Est GFR (Non-Af Amer) 103.7 (>60) BUN/Creatinine Ratio 12.3 (8-20) Glucose 108 H (70-100) mg/dL Calcium 9.6 (8.6-10.3) mg/dL Total Bilirubin 0.70 (0.2-1.0) mg/dL AST 19 (13-39) U/L ALT 18 (7-52) U/L Alkaline Phosphatase 55 (34-104) U/L C-Reactive Protein 14.92 H (<8.01) mg/L Total Protein 7.8 (6.4-8.9) g/dL Albumin 4.4 (3.2-5.2) g/dL Globulin 3.4 (2-4) g/dL Albumin/Globulin Ratio 1.3 (1-3) Lipase < 10 L (11.0-82.0) U/L Beta HCG, Quant < 0.60 mIU/mL Result Diagrams: 12/03/19 10:37 12/03/19 10:37 Lab Statement: Any lab studies that have been ordered have been reviewed, and results considered in the medical decision making process. Re-Evaluation - Re-Evaluation First Eval Re-Evaluation Time: 15:00 Comment: We discussed results and plan for admission. Abdominal Pain Fem Course/Dx - Course Course Of Treatment: Patient is a 34 year-old female who has a history of ulcerative colitis presenting with an episode of exacerbation onset yesterday with low abdominal pain, nausea, vomiting, fevers, rectal bleeding, and decreased oral intake with slight improvement since onset. Physical exam significant for lower abdominal tenderness on palpation, but the abdomen is otherwise soft and nondistended. Blood work obtained, revealing neutropenia with WBCs of 1.8, absolute neutrophils of 0.6, CRP of 14.92, and lipase <10. IV access obtained. Patient administered fluids. I spoke with Dr. Rolle from GI, and she recommends admission with [facility] either today or tomorrow. She also would like to hold on giving steroids at this time as she recommends a hematology consult given the patient's neutropenia. Dr. Womack from the hospitalist services accepts the patient for admission. Dr. Haddad from oncology agrees to consult for the patient. Patient agreeable with plan. - Diagnoses Provider Diagnoses: Exacerbation of ulcerative colitis - Provider Notifications Discussed Care Of Patient With: Verna Rolle - GI Time Discussed With Above Provider: 14:50 Instructed by Provider To: Other - I discussed the patient's case with Dr. Todd De La Fuente, and she recommends admission with [facility] either today or tomorrow. She would also like to hold on giving steroids at this time as she would like a hematology consult given the patient's neutropenia. Dr. Womack, hospitalist, accepts the patient for admission [[id number]]. Dr. Haddad, oncology, will consult for the patient [[id number]]. Discharge ED - Sign-Out/Discharge Documenting (check all that apply): Patient Departure - Patient accepted for admission by Dr. Womack. - Discharge Plan Condition: Stable Disposition: ADMITTED TO [facility] Referrals: Rena Lai, SOLAR LAB TECHNICIAN [Primary Care Provider] - - Billing Disposition and Condition Condition: STABLE Disposition: Admitted to [facility] - Attestation Statements Document Initiated by Gely: Yes Documenting Scribe: Amy Juarez Provider For Whom Gely is Documenting (Include Credential): DO Omid Monteroibbert Attestation: Amy Maguire scribed for Dr. Matty Estrella DO on 12/03/19 at 1701. Scribe Documentation Reviewed: Yes Provider Attestation: The documentation as recorded by the Amy howard accurately reflects the service I personally performed and the decisions made by me, Dr. Matty Estrella DO Status of Gely Document: Viewed
[2019-12-03] MEDS ORDERED: NS 0.9% 1000 ML** 1,000 ML IV ONE (14:26)
[2019-12-03] MEDS ORDERED: Cefepime 2 GM in Dextrose(*) 2 GM/50 ML BAG IV ONE (16:00)
[2019-12-03 16:12] LABS: Erythrocyte Sed Rate 20 mm/Hr (0-19)
[2019-12-03] MEDS ORDERED: Senna TAB 8.6 mg* TAB PO PRN (16:19)
[2019-12-03] MEDS ORDERED: Al Hydrox/Mg Hydrox/Simet LIQ* 30 ML UDC PO PRN (16:19)
[2019-12-03] MEDS ORDERED: Ondansetron INJ* 2 MG/ML VIAL IV PRN (16:19)
[2019-12-03] MEDS ORDERED: Acetaminophen TAB* 325 MG PO PRN (16:19)
[2019-12-03] MEDS ORDERED: Vancomycin(*) 2,000 MG in NS 0.9% 500 ML* 500 ML IVPB ONE (16:26)
[2019-12-03] MEDS ORDERED: Morphine INJ* 2 MG/ML 1 ML SYRINGE (TWO MG - NEW SYRINGE VERSION) IV PRN (16:52)
[2019-12-03] MEDS ORDERED: oxyCODONE/Acetamin 5/325 MG* TAB PO PRN ×2 (16:52)
[2019-12-03] MEDS ORDERED: Vancomycin(*) 1,000 MG - ED ONCE IV ONE ×4 (17:00→18:00)
[2019-12-03] MEDS ORDERED: Vancomycin per Pharmacy* NOTE FOLLOW UP SCH ×2 (17:00→18:00)
--- NOTE | 2019-12-03 17:00 | CONS ---
HEMATOLOGY CONSULTATION: DATE OF CONSULT: 12/03/19 PRIMARY CARE PROVIDER: Rena Lai NP REQUESTING PROVIDER: DEYSI Floyd CHIEF COMPLAINT: Abdominal pain and rectal bleeding. HISTORY OF PRESENT ILLNESS: This is a 34-year-old female with ulcerative colitis, under the care of Dr. Rolle, who presented to the emergency department with approximately 24 hours of rectal bleeding, generalized malaise, fever, and abdominal discomfort for the preceding 3 days. She reports that she has been having intermittent fevers, measured between 99.8 and 100.8 degrees Fahrenheit at home. She vomited once yesterday. She denies any sick contacts. She denies any cough or shortness of breath. She has been afebrile since reaching the emergency department, but was noted to be neutropenic, at which point hematology group was asked to consult. The patient reports that she had been evaluated for spontaneous neutropenia over the summer. It appears that on 05/09/19, she was seen for an unspecified viral illness by her general practitioner and a CBC was ordered, which demonstrated neutrophil count of 400. She was subsequently directed to the emergency department for evaluation. She was pancultured, afebrile and testing was normal. Repeat blood tests 2 days later showed a rise to 700 and a week from her initial labs showed normal neutrophil count of 2600 and there was an interval test in August, which was again normal at 4800. Labs dating as early as July 2018 show relatively normal neutrophil count, lowest at 1400. The patient reports that she has not previously been seen by a casino controller and never previously been told she was anemic or thrombocytopenic nor do her historic labs support that. She has been treated since June 2018 with monoclonal antibody, Entyvio, under the guidance of Dr. Rolle. She reports the frequency of dosing has varied based on her colitis symptoms. Most recently, the frequency of dosing has been decreased to once every 6 weeks. She is currently 4 weeks out from her last infusion. PAST MEDICAL HISTORY: Ulcerative colitis. PAST SURGICAL HISTORY: None. HOME MEDICATIONS: 1. Vitamin D 1000 units p.o. daily. 2. Dicyclomine 10 to 20 mg p.o. 4 times daily as needed for abdominal cramping. 3. Multivitamin 1 tablet p.o. daily. 4. Omeprazole 20 mg p.o. daily. 5. Entyvio 300 mg IV every 6 weeks. FAMILY HISTORY: Paternal grandfather had history of prostate cancer. REVIEW OF SYSTEMS: As noted in HPI, otherwise negative on full review of systems. PHYSICAL EXAM: Initial vital signs: Temperature 97.9 degrees Fahrenheit, pulse 81 beats per minute, respiratory rate 18, oxygen saturation 100%, blood pressure 136/79 mmHg. General: This is a mildly ill-appearing 34-year-old female, in no acute distress. HEENT: Head is normocephalic, atraumatic. Mucous membranes are pink and moist. Cardiovascular: Heart has a regular rate and rhythm. No murmurs, rubs, or gallops. Respiratory: Lungs are clear to auscultation without wheezes, crackles, or rhonchi. Abdomen is soft, mildly tender to palpation diffusely, with active bowel sounds. Skin: There are no rashes noted. Psych: The patient is alert, appropriately oriented, and appropriate affect to the situation. DIAGNOSTIC STUDIES/LAB DATA: CBC shows total white blood cell count of 1800 with a neutrophil count of 600, lymphs 800, and otherwise normal differential. She has normal hemoglobin at 13.8 with normal indices and a normal platelet count of 165,000. Comprehensive metabolic panel is unremarkable. CRP slightly elevated at 14.9. Imaging: None. ASSESSMENT AND PLAN: This is a 34-year-old female with ulcerative colitis, who presents to the emergency department with several days of abdominal cramping and rectal bleeding consistent with a flare of her colitis. She is found to be neutropenic and according to labs has had 1 prior episode in April of last year of isolated neutropenia which was in the setting of an acute viral illness, which resolved spontaneously without intervention. She does report 3 days of fevers. Her most recent temperature above 100 degrees Fahrenheit was yesterday evening. It seems most likely that this neutropenia is related to acute illness and not reflective of primary bone marrow dysfunction based on the remaining cell lines being intact. The patient should be treated for neutropenic fever given her recent fevers at home and recommend broad-spectrum antibiotics with cefepime. Recommend neutropenic precautions. No indication to initiate growth factor support at this time and anticipate that her neutropenia will spontaneously resolve as her acute illness improves. Recommend monitoring with serial CBCs with differential on a daily basis. Continue IV antibiotics until ANC is greater than 1000. If her neutropenia is prolonged, then a bone marrow biopsy would be indicated at that time. Initial look at known side effects of her ulcerative colitis treatment does not indicate neutropenia and this seems to be less likely given that it is a monoclonal antibody. This may, however, predispose her to more frequent infections. We would otherwise recommend standard treatment for ulcerative colitis flare with close attention for secondary infection. Pancultures including urine, blood, and stool should be collected. The hematology service will continue to follow along with this patient during her hospitalization. DEYSI KILGORE [id number]/[facility] #: [id number] [place]
[2019-12-03] MEDS ORDERED: metroNIDAZOLE IV 500 MG/100ML* 500 MG/100 ML BAG IVPB SCH ×2 (18:00→20:00)
[2019-12-03 18:43] LABS: Hematocrit 35 % (35-47); Hemoglobin 12.6 g/dL (12.0-16.0)
--- NOTE | 2019-12-03 19:28 | HP ---
CC: Dr. Verna Rolle; Rena Lai NP * HISTORY AND PHYSICAL: DATE OF ADMISSION: 12/03/19 ATTENDING PHYSICIAN WHILE IN THE HOSPITAL: Dr. Dmitriy Womack * (dictated by DYESI Floyd) OUTPATIENT TITLE CHECKER: Dr. Verna Rolle. PRIMARY CARE PROVIDER: Rena Lai NP CHIEF COMPLAINT: Abdominal pain and bright red blood per rectum. HISTORY OF PRESENT ILLNESS: Casie Christopher is a 34-year-old white female with past medical history significant for ulcerative colitis, GERD, and questionable sleep apnea, who presents to the emergency department due to worsening abdominal pain and bright red blood per rectum. The patient started having abdominal pain 3 days ago and started having bright red blood mixed with mucus in stool starting yesterday afternoon. Since that time, she has had over 10 bowel movements with bright red blood and mucus and she has lost count of exactly how many. She has right upper quadrant pain that has been worsening for over last 3 days. She initially took dicyclomine which helped initially but her pain still worsened today. She was feeling nauseous yesterday but not today and she did have 1 episode of vomiting yesterday which was nonbloody. She notes that she had a fever to 100.8 degrees Fahrenheit on 12/01/19. She tells me she had some rigors while she was having bowel movements, but she is unsure if this is trembling due to the pain of the bowel movements. She denies difficulty breathing, chest pain, dizziness, lightheadedness, or recent sick contacts. Someone in her daughter's class had pinworms; however, her daughter is not demonstrating signs of pinworms. She tells me she has chronic nasal congestion due to environmental allergies and has not had any worsening of this recently and denies a cough. She has additionally been having decreased oral intakes since the abdominal pain started. She denies urinary frequency and dysuria. Of note, she has recently seen Dr. Toussaint in the Rheumatology office who recommended starting her on sulfasalazine for her joint pain and the workup is still pending for this. However, the patient tells me she never took any of the sulfasalazine nor did she fill the prescription. PAST MEDICAL HISTORY: 1. Ulcerative colitis. 2. GERD. 3. Questionable sleep apnea, workup pending. 4. Questionable inflammatory arthropathy, workup pending. PAST SURGICAL HISTORY: None. HOME MEDICATIONS: 1. Vedolizumab 300 mg IV every 6 weeks. 2. Multivitamin 1 tab p.o. daily. 3. Vitamin D 1000 units p.o. daily. 4. Omeprazole 20 mg p.o. daily. 5. Bentyl 10 to 20 mg p.o. 4 times a day p.r.n. diarrhea. ALLERGIES: Tachycardia to CETIRIZINE, rash to CLINDAMYCIN, headache to GLUTEN, rash to PENICILLIN, extreme sedation to BENADRYL, hives to CT CONTRAST. FAMILY HISTORY: Parents are in their 60s and she has not had contact with them in last 6 years. However, she believes her mother to be healthy and her father to have hyperlipidemia. No other medical problems. SOCIAL HISTORY: The patient is . She lives with her and 7-year- old daughter. 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 She denies smoking, drug use, and alcohol use and she has never been a smoker. The patient's surrogate medical decision maker should she need one is her , Bony Christopher. His phone number is [phone]. REVIEW OF SYSTEMS: An 11-point review of systems was completed and all pertinent positives and negatives are above in the HPI. All other systems are negative. PHYSICAL EXAMINATION GENERAL: Young white female, lying upright in hospital bed, appearing comfortable, in no acute distress. VITAL SIGNS: Temperature 97.9 degrees Fahrenheit, pulse rate 81 beats per minute, respiratory rate 18, oxygen saturation 100% on room air, blood pressure 136/79. HEENT: Eyes: PERRL. Sclerae anicteric. ENT: Mucous membranes moist. LUNGS: Clear to auscultation throughout. CARDIO: Regular rate and rhythm without murmurs, rubs, or gallops. ABDOMEN: Normoactive bowel sounds x4 quadrants. Abdomen is soft and nondistended. Tenderness to palpation in the right upper quadrant. EXTREMITIES: No clubbing, cyanosis or edema. NEURO: The patient is alert and oriented x3. Normal gait, able to move all extremities. SKIN: Skin is warm, dry, and intact. No visible erythema. There is a small patch of dryness to the left lateral antecubital fossa which appears consistent with some mild eczema. DIAGNOSTIC STUDIES/LAB DATA: White blood cell count 8.1, hemoglobin 13.8, hematocrit 39, platelet count 165, absolute neutrophil count 0.6, sed rate 20. Sodium 136, potassium 3.8, chloride 104, carbon dioxide 23, anion gap 9, BUN 8, creatinine 0.65, glucose 108, calcium 9.6. LFTs are unremarkable. CRP 14.92. Lipase less than 10. Beta hCG negative. ASSESSMENT AND PLAN: Casie Christopher is a 34-year-old white female with past medical history significant for ulcerative colitis and gastroesophageal reflux disease, who presents to the emergency department today upon direction of her outpatient production cook for worsening abdominal pain and bright red blood per rectum. The patient was found to be neutropenic and the patient will be admitted for: 1. Abdominal pain and bright red blood per rectum. I suspect this is likely ulcerative colitis flare, however, in the setting of the patient's neutropenia and the fact that the abdominal pain is in the right upper quadrant, I do have concern for abdominal pathology. I will do CT scan of the abdomen and pelvis. A Clostridium difficile test has been ordered stat and I will hold off on antidiuretic medication until that occurs. Her H and H is stable at this time. We will continue to monitor this since she does continue to have hematochezia. I have consulted Dr. Salazar with the gastroenterology service. I am awaiting his recommendations. At this time, I will hold off on any systemic or per rectum glucocorticoids until we can make a recommendation. It appears that the plan is for the patient to have a flex sig tomorrow. I will make her n.p.o. after midnight for this. I am ordering pain control with p.r.n. oxycodone, Tylenol, and morphine for breakthrough pain and CMV, IgM, and IgG is pending. 2. Neutropenic fever. The patient had a recorded fever at home 2 days ago and has been afebrile in the emergency department today, but she is neutropenic with the white blood cell count of 1.8 and absolute neutrophil count of 0.6 today. She has been evaluated by the hematology/oncology service and I appreciate their consults and I am awaiting further recommendations. She will be placed on intravenous precautions. A blood culture has been ordered and she will be placed on broad- spectrum antibiotics cefepime and vancomycin. I do not currently have suspicion for any source of infection and the CT abdomen and pelvis pending at this time. Thus, we ordered a urinalysis with a reflex urine culture and chest x-ray to evaluate for pneumonia. The patient does not have any critical signs of UTI or pneumonia. I did perform a thorough skin exam and I do not find any suspicious rashes and I will continue to monitor her white blood cell count with a CBC or diff tomorrow. 3. Gastroesophageal reflux disease. I will continue the patient's home omeprazole. 4. FEN: The patient will have a clear liquid diet and n.p.o. after midnight. No need for further fluids at this time. She did receive a liter of bolus in the emergency department and her electrolytes showed no need for repletion. 5. DVT prophylaxis: The patient has a DVT risk score of 1. I have ordered SCDs and ambulation. 6. Code status: The patient is full code. TIME SPENT: Approximately 55 minutes was spent on this admission, approximately half this time was spent at bedside evaluating the patient and discussing the plan of care. This case has been reviewed by my attending, Dr. Dmitriy Womack, and he agrees with this plan of care. DEYSI FLOYD [id number]/[facility] #: [id number] MTDD
--- NOTE | 2019-12-03 20:00 | CONS ---
GASTROENTEROLOGY CONSULT: DATE: 12/03/19 CONSULTING PHYSICIANS: Dr. Matty Estrella, emergency room; Dr. Verna De La Fuente [facility] REASON FOR CONSULTATION: Two days of increased abdominal cramping, loose bloody stool and transient fevers in a woman with UC four weeks after Entyvio infusion HISTORY: This 34-year-old woman with ulcerative colitis has been on Entyvio infusions since late 2017. She had been noticing some flares of symptoms during the end of the dosing interval and therefore went from 8 weeks to 6 weeks and then eventually down to 4 weeks. This fall, she was having joint pains and saw Rheumatology. Her CARLOS is positive. Because of this, her infusions were lengthened every 6 weeks and she is now back after the second cycle of that. Her last infusion was 4 weeks ago. Two weeks ago, she was feeling fine with a good appetite, 2 to 4 stools a day which is her best baseline and with no blood. Her and her 6-year-old daughter have not been ill. She has not been exposed to anyone ill that she can think of. She has had no suspect restaurant meals or unusual foods and no systemic antibiotics in a year Two days ago in the evening, she had onset of abrupt symptoms mid abdominal cramps and loose stool. There was no blood initially, but it developed yesterday. She called in at 4 a.m. Given the combination of symptoms, she was advised to come to the emergency room. It was noted her white count was down to 1.8. CRP up at 12. She says the diarrhea is acccelerating and she has gone today more than she can count. PAST MEDICAL HISTORY: 1. Colitis, onset 4 to 5 yrs ago going through a progression from indeterminate to definitely ulcerative colitis, which was determined while she was living in [place]. She received azathioprine and infliximab and there was abdominal pain and elevated amylase, so the azathioprine was stopped. The infliximab seemed to lose effect and she was switched to Entyvio. This seemed to work well until of symptoms, which was described above. Her UC has responded to prednisone a couple times when used over a year ago though she had trouble weaning. There is no other inflammatory bowel disease in her family that she is aware of. She had colonoscopy in June and this showed just mild erythema in the rectum and to about 15 cm and then was normal above that. She had an elevated fecal calprotectin back in the summer and then it was normal in July It is not clear when in the dosing interval that was done. An Entyvio level has been sent with the result in her regular project management analyst 's office. 2. SIBO - she has been followed by [facility] Medicine at [facility] and has been treated for that with Xifaxan and neomycin. She says the neutropenia last summer showed up on routine labs by Libertad Cramer NP 3. Polyarthralgias - being followed by [facility], Rheumatology. MEDS: At home: 1. Vedolizumab 300 q.6 weeks. 2. Vitamin D. 3. Omeprazole 20 mg. 4. Bentyl 10 mg. SOCIAL HISTORY: She is from [place] originally, lived in [place] as her was in grad school and has one child. She came here about a year ago. REVIEW OF SYSTEMS: No history of opportunistic infections, syncope, neurologic disease, seizure, valvular disease, palpitations, TB, hemoptysis. She has been tested for TB repeatedly and negative. She has no skin disorders. EXAM: She is wearing a mask. She is afebrile since arrival though had a fever at home. HEENT exam is unremarkable. She has no icterus. Mucous membranes are normal. She has no adenopathy. Breath sounds are clear. Heart sounds are regular. Breast and Pelvic Exams: Deferred. The abdomen is symmetric with normal bowel sounds, soft. There is deep tenderness diffusely. Rectal: Deferred. She is passing cranberry- colored sludgy material. Extremities show no edema. CT ABDOMEN: Shows some thickening of the large bowel. LABS: Stool for C. diff pending. IMPRESSION: Flare of colitic symptoms that sounds most consistent with her IBD despite a recent Entyvio injection. . There is no history suggesting a definite infection superimposed or C Diff though clearly needs to be checked for. .She will have a flex sig in the morning. It is most likely flare of the colitis and this would .indicate a failure of Entyvio. She has responded well to corticosteroids in the past so initiating some intravenous methylprednisolone would be reasonable pending the results of culture and of a sigmoidoscopy to be done tomorrow. If indeed this is a failure of Entyvio, Annettallisa or Surgery consult may be options to discuss. [id number]/[facility] #: [id number] [place]
[2019-12-03 22:06] LABS: Urine Appearance Clear; Urine Bilirubin Negative (Negative); Urine Blood 1+ (Negative); Urine Color Yellow; Urine Glucose Negative (Negative); Urine Ketones 2+ (Negative); Urine Nitrite Negative (Negative); Urine Protein Negative (Negative); Urine Specific Gravity 1.018 (1.010-1.030); Urine Urobilinogen Negative (Negative)
[2019-12-03 22:11] LABS: Urine Bacteria Absent (Absent); Urine Red Blood Cell 1+(3-5/hpf) (Absent); Urine Squamous Epithelial Cell Present (Absent); Urine White Blood Cell Trace(0-5/hpf) (Absent)
[2019-12-03] MEDS: methylPREDNISolone SOD 40 MG* 1 ML VIAL IV SCH (22:15)
[2019-12-03] MEDS: metroNIDAZOLE IV 250 MG/50ML* 50 ML IVPB SCH (22:15)
[2019-12-04] MEDS: Vancomycin(*) 750 MG in NS 0.9% 250 ML* 250 ML IV SCH ×5 (00:34→23:58)
[2019-12-04] MEDS: Cefepime 2 GM in Dextrose(*) 2 GM/50 ML BAG IV SCH ×3 (03:00→18:04)
[2019-12-04] MEDS: metroNIDAZOLE IV 250 MG/50ML* 50 ML IVPB SCH ×3 (04:04→22:47)
[2019-12-04] MEDS ORDERED: Sodium Phosphate ADULT ENEMA* 118 ml bottle PR ONE ×2 (09:12→09:13)
[2019-12-04] MEDS: Multivitamins/Minerals TAB PO SCH (09:48)
[2019-12-04] MEDS: methylPREDNISolone SOD 40 MG* 1 ML VIAL IV SCH (09:48)
[2019-12-04] MEDS: Cholecalciferol TAB* 1000 UNITS PO SCH (09:48)
[2019-12-04] MEDS: Lactobacillus Acidophilus* 1 TAB PO SCH (09:48)
[2019-12-04] MEDS: Pantoprazole TAB * 40 MG TAB PO SCH (09:49)
[2019-12-04 10:03] LABS: Hematocrit 38 % (35-47); Hemoglobin 13.3 g/dL (12.0-16.0); Mean Corpuscular HGB Conc 35 g/dL (31-36); Mean Corpuscular Hemoglobin 31 pg (27-31); Mean Corpuscular Volume 87 fL (80-97); Mean Platelet Volume 9.1 fL (7.4-10.4); Platelet Count 183 10^3/uL (150-450); Red Blood Count 4.31 10^6 /uL (3.70-4.87); Red Cell Distribution Width 12 % (10-15); White Blood Count 1.8 10^3/uL (3.5-10.8)
[2019-12-04 10:10] LABS: ABS Lymphocytes 0.6 10^3/ul (1.0-4.8); ABS Monocytes 0.3 10^3/ul (0-0.8); ABS Neutrophils 0.9 10^3/ul (1.5-7.7); Eosinophil % 0.1 %; Lymphocyte % 34.5 %; Nucleated Red Blood Cells % 0.1
[2019-12-04 10:19] LABS: Anion Gap 8 mmol/L (2-11); BUN/Creatinine Ratio 10.9 (8-20); Blood Urea Nitrogen 6 mg/dL (6-24); CO2 Carbon Dioxide 21 mmol/L (22-32); Calcium 9.4 mg/dL (8.6-10.3); Chloride 108 mmol/L (101-111); EGFR African American 152.2 (>60); EGFR Non-African American 125.8 (>60); Glucose 127 mg/dL (70-100); Potassium 4.1 mmol/L (3.5-5.0); Sodium 137 mmol/L (135-145)
[2019-12-04 10:39] LABS: Vancomycin Trough 17.2 mcg/mL
[2019-12-04 11:03] LABS: Folate > 20.00 ng/mL (>3.99)
[2019-12-04] MEDS ORDERED: Vancomycin Trough Check NOTE FOLLOW UP ONE (11:30)
[2019-12-04] MEDS ORDERED: fentaNYL* 50 MCG/ML 2 ML VIAL (100 MCG VIAL) ONE (14:15)
[2019-12-04] MEDS ORDERED: Midazolam* 1 MG/ML 10 ML VIAL (10 MG) ONE (14:15)
--- NOTE | 2019-12-04 15:42 | PN ---
Subjective Date of Service: 12/04/19 Interval History: Patient felt abdominal pain improved. No more rectal bleeding. 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 She is concerned of that causing her low blood counts. I reassured her that we would check that. Objective Active Medications: Acetaminophen (Tylenol Tab*) 650 mg PO Q4H PRN PRN Reason: MILD PAIN or TEMP > 100.4 Al Hydrox/Mg Hydrox/Simethicone (Maalox Plus*) 30 ml PO Q6H PRN PRN Reason: INDIGESTION Cholecalciferol (Vitamin D Tab*) 1,000 units PO DAILY [facility] Last Admin: 12/04/19 09:48 Dose: 1,000 units Cefepime HCl (Maxipime 2 Gm In Dextrose Duplex (*)) 2 gm in 50 mls @ 100 mls/ hr IV 0100,0900,1700 [facility] Last Admin: 12/04/19 09:14 Dose: 100 mls/hr Vancomycin HCl 750 mg/ Sodium (Chloride) 250 mls @ 166.667 mls/hr IV Q6H [facility] Last Admin: 12/04/19 12:50 Dose: 100 mls/hr Metronidazole/Sodium Chloride (Flagyl 250 Mg Ivpb*) 50 mls @ 50 mls/hr IVPB Q8H [facility] Last Admin: 12/04/19 04:04 Dose: 50 mls/hr Lactobacillus Rhamnosus (Lactobacillus Acidophilus*) 1 tab PO DAILY [facility] Last Admin: 12/04/19 09:48 Dose: 1 tab Methylprednisolone Sodium Succinate (Solu-Medrol 40 Mg) 40 mg IV DAILY [facility] Stop: 12/04/19 19:59 Last Admin: 12/04/19 09:48 Dose: 40 mg Morphine Sulfate (Morphine Inj (Syringe))*) 2 mg IV Q2H PRN PRN Reason: pain - breakthrough Last Admin: 12/04/19 10:18 Dose: 2 mg Multivitamins/Minerals (Theragran/Minerals Tab*) 1 tab PO DAILY [facility] Last Admin: 12/04/19 09:48 Dose: 1 tab Ondansetron HCl (Zofran Inj*) 4 mg IV Q4H PRN PRN Reason: NAUSEA/VOMITING Oxycodone/Acetaminophen (Percocet 5/325 Tab*) 1 tab PO Q4H PRN PRN Reason: PAIN - MODERATE Oxycodone/Acetaminophen (Percocet 5/325 Tab*) 2 tab PO Q4H PRN PRN Reason: PAIN - SEVERE Pantoprazole Sodium (Protonix Tab*) 40 mg PO DAILY [facility] Last Admin: 12/04/19 09:49 Dose: 40 mg Pharmacy Consult (Vancomycin Per Pharmacy*) 1 note FOLLOW UP .VANC PER PHARMACY EVE; Protocol Pharmacy Profile Note (Vancomycin Trough Check) 1 note FOLLOW UP 1130 ONE Stop: 12/05/19 11:31 Senna (Senokot 8.6 Mg Tab*) 1 tab PO BID PRN PRN Reason: CONSTIPATION Vital Signs - 8 hr 12/04/19 12/04/19 12/04/19 08:00 10:18 11:00 Temperature 98.0 F Pulse Rate 85 Respiratory 20 22 16 Rate Blood Pressure 103/78 (mmHg) O2 Sat by Pulse 100 Oximetry 12/04/19 12:44 Temperature Pulse Rate Respiratory 20 Rate Blood Pressure (mmHg) O2 Sat by Pulse Oximetry Oxygen Devices in Use Now: None Exam: Appearance: age appropriate appearance, alert and interactive, NAD, wearing mask Ears/Nose/Mouth/Throat: Clear Oropharnyx, Mucous Membranes Moist Respiratory: Symmetrical Chest Expansion and Respiratory Effort, clear lung on auscultation Cardiovascular: NL Sounds; No Murmurs; No JVD, RRR Abdominal: NL Sounds; No Tenderness; No Distention, No Hepatosplenomegaly Extremities: No Edema Neurological: Alert and Oriented x 3 Result Diagrams: 12/04/19 09:56 12/04/19 09:56 Additional Lab and Data: Lab Results 12/03/19 12/03/19 Range/Units 10:37 10:37 WBC 1.8 L (3.5-10.8) 10^3/uL RBC 4.46 (3.70-4.87) 10^6 /uL Hgb 13.8 (12.0-16.0) g/dL Hct 39 (35-47) % MCV 87 (80-97) fL MCH 31 (27-31) pg MCHC 35 (31-36) g/dL RDW 12 (10-15) % Plt Count 165 (150-450) 10^3/uL MPV 9.1 (7.4-10.4) fL Neut % (Auto) 33.0 % Lymph % (Auto) 42.1 % [place] % (Auto) 22.7 % Eos % (Auto) 1.6 % Baso % (Auto) 0.6 % Absolute Neuts (auto) 0.6 L* (1.5-7.7) 10^3/ul Absolute Lymphs (auto) 0.8 L (1.0-4.8) 10^3/ul Absolute Monos (auto) 0.4 (0-0.8) 10^3/ul Absolute Eos (auto) 0.0 (0-0.6) 10^3/ul Absolute Basos (auto) 0.0 (0-0.2) 10^3/ul Absolute Nucleated RBC 0.0 10^3/ul Nucleated RBC % 0.1 Sodium 136 (135-145) mmol/L Potassium 3.8 (3.5-5.0) mmol/L Chloride 104 (101-111) mmol/L Carbon Dioxide 23 (22-32) mmol/L Anion Gap 9 (2-11) mmol/L BUN 8 (6-24) mg/dL Creatinine 0.65 (0.51-0.95) mg/dL Est GFR ( Amer) 125.5 (>60) Est GFR (Non-Af Amer) 103.7 (>60) BUN/Creatinine Ratio 12.3 (8-20) Glucose 108 H (70-100) mg/dL Calcium 9.6 (8.6-10.3) mg/dL Total Bilirubin 0.70 (0.2-1.0) mg/dL AST 19 (13-39) U/L ALT 18 (7-52) U/L Alkaline Phosphatase 55 (34-104) U/L C-Reactive Protein 14.92 H (<8.01) mg/L Total Protein 7.8 (6.4-8.9) g/dL Albumin 4.4 (3.2-5.2) g/dL Globulin 3.4 (2-4) g/dL Albumin/Globulin Ratio 1.3 (1-3) Lipase < 10 L (11.0-82.0) U/L Beta HCG, Quant < 0.60 mIU/mL Assess/Plan/Problems-Billing Assessment: Casie Christopher is a 34 y/o female with history of ulcerative colitis on Entyvio , GERD, sleep apnea, presented with abdominal pain, fresh red blood bleeding per rectum and low grade fever, found to have paracolic stranding, likely UC flare. Her course complicated by neutropenia, which likely due to bone marrow suppression from infection or UC flare. - Patient Problems (1) Ulcerative colitis Current Visit: Yes Status: Acute Code(s): K51.90 - ULCERATIVE COLITIS, UNSPECIFIED, WITHOUT COMPLICATIONS SNOMED Code(s): 40478569 Comment: - likely ulcerative colitis flare - flex sigmoidoscopy today - iv solemedru 40mg daily for now - appreciate GI consult (2) Neutropenic fever Current Visit: Yes Status: Acute Code(s): D70.9 - NEUTROPENIA, UNSPECIFIED; R50.81 - FEVER PRESENTING WITH CONDITIONS CLASSIFIED ELSEWHERE SNOMED Code(s) : 168945477 Comment: - neutropenia likely due to bone marrow suppresion from either acute infection or disease flare - iv cefepime and vancomycin (12/03/19-) for now until neutrophil>1000 - repeat CBC tomorrow (3) GERD (gastroesophageal reflux disease) Current Visit: Yes Status: Acute Code(s): K21.9 - GASTRO-ESOPHAGEAL REFLUX DISEASE WITHOUT ESOPHAGITIS SNOMED Code(s): 044650890 Comment: - continue home omeprazole (4) DVT prophylaxis Current Visit: Yes Status: Acute Code(s): Z29.9 - ENCOUNTER FOR PROPHYLACTIC MEASURES, UNSPECIFIED SNOMED Code(s): 921607406 Comment: - SCD and ambulation Status and Disposition: Inpatient medicine. Attestation Documenting Resident: Kavya Hagen Supervising Physician: Trinity Tomas Attending/Supervising Physician Comment: Pending flex sig today. On IV steroids and antibiotics. As pt had neutropenic fever, hematology consulted for unclear source of neutropenia. Will monitor ANC and f/u with GI. Attestation: This service has been performed in part by a resident under the direction of a teaching physician.I, Trinity Tomas, performed the service, or was physically present during the critical, or doss portions of the service, furnished by the resident. I participated in the management of the patient.
--- NOTE | 2019-12-04 20:06 | PRO ---
CC: Dr. Hagen * DATE OF PROCEDURE: 12/04/19 - ROOM #401 PROCEDURE: Flex sig with biopsy. REQUESTING PROVIDER: Dr. Hagen. INDICATION: The patient with ulcerative colitis, on Entyvio, admitted with abdominal pain, diarrhea, rectal bleeding and low-grade temperature. Noted to have low white blood cell count with relative neutropenia. Stool studies negative for C. diff. Started on IV Solu-Medrol given concern for UC flare with some improvement symptomatically. Presents for flex sig to assess for level of inflammation. MEDICATIONS GIVEN: Midazolam 8 mg IV, Fentanyl 50 mcg IV. DESCRIPTION OF PROCEDURE: Full disclosure of risks were reviewed with the patient as detailed on the consent form. The patient was placed in the left lateral decubitus position and monitored with continuous pulse oximetry, capnography, interval blood pressure monitoring, and direct observation. After anorectal examination was performed, the pediatric colonoscope was inserted into the rectum and slowly advanced forward to the distal sigmoid. Findings and interventions are described below. FINDINGS: Anorectal exam was unremarkable. The scope was inserted into the rectum and slowly advanced forward to the distal sigmoid. At this point, there was a relatively sharp turn and the patient became uncomfortable. Decision was made not to try to advance past this area given the moderate colitis. Scope was then slowly withdrawn. Quality of the prep overall was good in the examined area. There was moderate diffuse erythema without erosions or ulcers. There was blurring of vascular markings. Biopsies were obtained throughout the examined area. Retroflexion not performed given the inflammation. Scope was then withdrawn from the patient. The patient tolerated the procedure well and was recovered in the GI recovery area. IMPRESSION: 1. Flexible sigmoidoscopy to distal sigmoid. 2. Moderate erythema throughout the examined area. No erosions or ulcers. Presentation suggestive of mild to moderate colitis. FOLLOWUP: 1. Await pathology. We will ask that CMV stain to be performed. 2. Continue Solu-Medrol. Current dose 40 mg IV daily. Typically, I used 60 mg daily. The patient started to have some symptomatic improvement, so okay to continue on this dose for now. 3. Antibiotics were started given concern for borderline fever while neutropenic. We will defer the antibiotic recommendation to Heme/Onc for now as I do not typically recommend antibiotics for an ulcerative colitis flare. 4. Please ensure that CMV PCR was sent from blood. Continue to monitor CBC with diff, comprehensive panel and CRP daily. 5. Advance diet as tolerated. Low residue diet as a cool diet as appropriate. 6. If the patient's symptoms are improving on IV steroids, then we can consider transitioning to oral steroids tomorrow or the following day. I will need to see the patient in clinic to discuss treatment options as I suspect we will need to move to a different medication other than Entyvio. I am a bit unimpressed with the endoscopic findings given the patient's clinical presentation, although I suspect that there is still active disease on the scope , arguing for a failure of Entyvio. Thank you very much for this consult. GI will continue to follow. [id number]/[facility] #: [id number] [place]
[2019-12-05] MEDS: Cefepime 2 GM in Dextrose(*) 2 GM/50 ML BAG IV SCH ×2 (02:56→09:18)
[2019-12-05] MEDS ORDERED: metroNIDAZOLE IV 250 MG/50ML* 50 ML IVPB SCH (06:30)
[2019-12-05] MEDS: metroNIDAZOLE IV 250 MG/50ML* 50 ML IVPB SCH (07:52)
[2019-12-05 08:12] LABS: ABS Lymphocytes 1.9 10^3/ul (1.0-4.8); ABS Monocytes 0.6 10^3/ul (0-0.8); ABS Neutrophils 1.4 10^3/ul (1.5-7.7); Eosinophil % 1.2 %; Hematocrit 38 % (35-47); Hemoglobin 13.5 g/dL (12.0-16.0); Lymphocyte % 47.4 %; Mean Corpuscular HGB Conc 36 g/dL (31-36); Mean Corpuscular Hemoglobin 31 pg (27-31); Mean Corpuscular Volume 88 fL (80-97); Mean Platelet Volume 9.4 fL (7.4-10.4); Nucleated Red Blood Cells % 0.1; Platelet Count 184 10^3/uL (150-450); Red Blood Count 4.33 10^6 /uL (3.70-4.87); Red Cell Distribution Width 12 % (10-15)
[2019-12-05] MEDS: Vancomycin(*) 750 MG in NS 0.9% 250 ML* 250 ML IV SCH (09:26)
[2019-12-05] MEDS ORDERED: Vancomycin Trough Check NOTE FOLLOW UP ONE ×2 (09:30→11:30)
[2019-12-05] MEDS: Multivitamins/Minerals TAB PO SCH ×2 (09:49→12:05)
[2019-12-05] MEDS: Lactobacillus Acidophilus* 1 TAB PO SCH ×2 (09:49→12:06)
[2019-12-05] MEDS: Cholecalciferol TAB* 1000 UNITS PO SCH ×2 (09:49→12:05)
[2019-12-05] MEDS: Pantoprazole TAB * 40 MG TAB PO SCH ×2 (09:49→12:06)
--- NOTE | 2019-12-05 11:12 | PN ---
Progress Note - Progress Note Date of Service: 12/05/19 SOAP: Subjective: []Presented to the ER with Chron's flare - bloody stools. Noted several days of temp., Tmax 100.8 with no other specific concerns related to this. "I get fever's sometimes." Daughter has a cold. Tired today, but no further bloody stools. States it was green this AM. Frustrated that her counts spontaneously recovered, "and I just pumped myself full of all these antibiotics because now my stomach is really messed up." Medications: Acetaminophen (Tylenol Tab*) 650 mg PO Q4H PRN PRN Reason: MILD PAIN or TEMP > 100.4 Al Hydrox/Mg Hydrox/Simethicone (Maalox Plus*) 30 ml PO Q6H PRN PRN Reason: INDIGESTION Cholecalciferol (Vitamin D Tab*) 1,000 units PO DAILY [facility] Last Admin: 12/05/19 09:49 Dose: 1,000 units Lactobacillus Rhamnosus (Lactobacillus Acidophilus*) 1 tab PO DAILY [facility] Last Admin: 12/05/19 09:49 Dose: 1 tab Morphine Sulfate (Morphine Inj (Syringe))*) 2 mg IV Q2H PRN PRN Reason: pain - breakthrough Last Admin: 12/04/19 10:18 Dose: 2 mg Multivitamins/Minerals (Theragran/Minerals Tab*) 1 tab PO DAILY [facility] Last Admin: 12/05/19 09:49 Dose: 1 tab Ondansetron HCl (Zofran Inj*) 4 mg IV Q4H PRN PRN Reason: NAUSEA/VOMITING Last Admin: 12/05/19 09:56 Dose: 4 mg Oxycodone/Acetaminophen (Percocet 5/325 Tab*) 1 tab PO Q4H PRN PRN Reason: PAIN - MODERATE Oxycodone/Acetaminophen (Percocet 5/325 Tab*) 2 tab PO Q4H PRN PRN Reason: PAIN - SEVERE Pantoprazole Sodium (Protonix Tab*) 40 mg PO DAILY [facility] Last Admin: 12/05/19 09:49 Dose: 40 mg Senna (Senokot 8.6 Mg Tab*) 1 tab PO BID PRN PRN Reason: CONSTIPATION Objective: [] Vital Signs Temp Pulse Resp BP Pulse Ox 97.6 F 79 18 105/64 100 12/05/19 02:24 12/05/19 02:24 12/05/19 02:24 12/05/19 02:24 12/05/19 02:24 A&Ox3, EOMI, neuro grossly non-focal Notably tired and frustrated, somewhat despondent during exam and discussion HRR, S1S2, no murmur noted LS clear +BS, denies tenderness No obvious MS malformations Laboratory Results - last 24 hr 12/05/19 12/05/19 07:48 07:48 WBC 4.0 RBC 4.33 Hgb 13.5 Hct 38 MCV 88 MCH 31 MCHC 36 RDW 12 Plt Count 184 MPV 9.4 Neut % (Auto) 35.8 Lymph % (Auto) 47.4 [place] % (Auto) 14.8 Eos % (Auto) 1.2 Baso % (Auto) 0.8 Absolute Neuts (auto) 1.4 L Absolute Lymphs (auto) 1.9 Absolute Monos (auto) 0.6 Absolute Eos (auto) 0.0 Absolute Basos (auto) 0.0 Absolute Nucleated RBC 0.0 Nucleated RBC % 0.1 C-Reactive Protein 3.37 Assessment: []34 yo female with ulcerative colitis presented with flare symptoms and found to have leukopenia. Rest of cell lines intact with elevated inflammatory markers. At this time her counts have spontaneously recovered and there is no indication for underlying bone marrow dysfunction, mechanism of leukopenia likely driven by viral illness and underlying autoimmune process; no role for further hematology work-up. Plan: []1. Neutropenic fever resolved: can d/c antibiotics after 3rd dose today - consideration of cont.'d GI coverage to be deferred to attending and GI teams - no further hem work-up indicated, she does not need further f/u, Hem/Onc to sign off Thank you for the consultation and please contact our office should further concerns arise
[2019-12-05 12:15] VITALS: BP 121/59
[2019-12-05 14:08] LABS: Cytomegalovirus IgG Antibody Positive (Negative)
--- NOTE | 2019-12-06 00:19 | DS ---
CC: Rena Lai NP; Verna Rolle MD * DISCHARGE SUMMARY: DATE OF ADMISSION: 12/03/19 DATE OF DISCHARGE: 12/05/19 PRIMARY CARE PHYSICIAN: Rena Lai NP OUTPATIENT SUPERVISOR FINISH END: Verna Rolle MD PRIMARY DIAGNOSES: 1. Ulcerative colitis flare. 2. Neutropenia. SECONDARY DIAGNOSIS: None. CONSULTS: Dr. Mac Ragsdale of GI; DEYSI Gama, of Hematology. PROCEDURES: Flexible sigmoidoscopy on 12/04/19. DISCHARGE MEDICATIONS: 1. Prednisone 50 mg daily to titrate down by 10 mg every 3 days. 2. Omeprazole 20 mg daily. 3. Dicyclomine 10 mg 4 times a day p.r.n. 4. Oxycodone 5 mg tabs every 6 hours as needed, given 10 tabs. 5. Vitamin D 1000 units daily. 6. Multivitamin 1 tab daily. 7. Entyvio per GI. HISTORY OF PRESENT ILLNESS: Ms. Christopher is a 34-year-old woman with ulcerative colitis, GERD, questionable sleep apnea, who presents to the ER for worsening abdominal pain and bright red blood per rectum for 3 days. She states 3 days ago the pain started and was lower abdominal and crampy in nature that was associated with bright red blood in her stool mixed with mucus starting the day prior to presentation. She has had over 10 bowel movements per day with bright red blood in her stool. She also has been experiencing right upper quadrant pain with worsening over the last 3 days. She took dicyclomine which initially helped, but eventually the pain continued to worsen. She experienced 1 episode of vomiting on day prior to presentation that was nonbloody. She measured her temperature at home and it was 100.8 degrees 2 days prior to presentation and associated with rigors with bowel movements. Of note, the patient had recently seen Dr. Toussaint in Rheumatology office who recommends starting her on sulfasalazine for joint pain and the workup for this is still ongoing. The patient reports she had not taken and sulfasalazine and did not fill the prescription. HOSPITAL COURSE: The patient was admitted to the hospitalist service for likely ulcerative colitis flare as well as possible neutropenic fever. While we did not have a recorded fever here, she does report 1 at home and her neutrophils on laboratory testing were initially 600. GI was consulted and recommended to keep n.p.o. for flex sig next day preceded by enema. Hematology was also consulted for neutropenic fever. The patient was initiated on cefepime and that was recommended to continue until her ANC was greater than 1000. She is also maintained on neutropenic precautions. It was thought her neutropenia was related to her acute illness and not reflective of a primary bone marrow dysfunction. By the day of discharge, the patient's neutrophil count increased to 1400, so her cefepime was discontinued as she exhibited no further signs of infection. Flex sig showed moderate erythema throughout the examined area without erosions or ulcers. Presentation was suggestive of mild to moderate colitis. CMV serum was pending by the time of discharge as well as pathology with CMV stain from flex sig. GI recommended switching the patient from IV steroids to oral given her symptomatic improvement. By the day of discharge, the patient states that her symptoms were significantly improved including abdominal pain and number of bowel movements. She was not passing blood in her stool. She was able to tolerate a low-residue diet. The patient was eager to return home. PHYSICAL EXAMINATION: Afebrile, heart rate 65, blood pressure 121/59, respiratory rate 16, oxygen saturation 100% on room air. In general, she is a nontoxic- appearing woman, in no acute distress, although she is quite irritable. She is alert and interactive. HEENT: Moist mucous membranes. OP clear. Neck: Supple, no JVD. Heart: Regular rate and rhythm. No murmurs, gallops, or rubs. Lungs: Clear to auscultation bilaterally. Abdomen: Soft, nontender, and nondistended. Extremities: Warm and well perfused without evidence of edema. Neuro: A and O x2. PERTINENT DIAGNOSTIC STUDIES: CBC notable for leukopenia which resolved to 4.0 white blood cell count by the day of discharge with ANC 1400. BMP and LFTs unremarkable. ESR 20 and CRP 15. Vitamin B12 of 470 with folate over 20. UA significant for ketones on admission. CRP on discharge 3.37. Flex sig path report pending at the time of discharge. Abdomen and pelvis CT, nonspecific findings compatible with ulcerative colitis flare. There was pericolonic stranding best seen along the left paracolic gutter, left colon fascia is thickened. No pneumatosis, portal venous gas, pneumoperitoneum is identified. There are a few haustral folds along the transverse, descending, and sigmoid colon. There is generalized paucity of stool in these segments of the colon. DISCHARGE PLAN: The patient will be discharged to follow up with her primary care physician as well as Dr. Verna Rolle of GI. For her ulcerative colitis flare, she was given a steroid taper and was explained to start at 50 mg daily and continue to titrate down every 3 days by 10 mg of prednisone. She has an appointment scheduled with Dr. Rolle, who will make further decisions regarding her Entyvio and if she should continue with this treatment. The patient was continued on all her other home medications as before. DIET: Low-residue foods. ACTIVITY: As tolerated. DISPOSITION: Home. CONDITION: Improved. TIME SPENT: Approximately 60 minutes was spent on the discharge of this patient , more than half of which was spent with care coordination at bedside for interview and exam. [id number]/[facility] #: [id number] MTDD
== END 2019-12-05 13:15 | disposition home or self-care (01) | DRG 387 ==
LOC: ED 10:10 → MED 16:19 → ED 17:51
PROVIDERS: ADMIT Internal Medicine; ATTEND Internal Medicine
PROC: 0DBN8ZX Excision of Sigmoid Colon, Via Natural or Artificial Opening Endoscopic, Diagnostic (ICD-10-PCS; principal; 2019-12-04)
DX: K51.90 Ulcerative colitis, unspecified, without complications (principal); K21.9 Gastro-esophageal reflux disease without esophagitis; D70.9 Neutropenia, unspecified; R50.81 Fever presenting with conditions classified elsewhere; M25.50 Pain in unspecified joint; G47.30 Sleep apnea, unspecified; Z88.1 Allergy status to other antibiotic agents; Z88.8 Allergy status to other drugs, medicaments and biological substances; Z88.0 Allergy status to penicillin; Z91.041 Radiographic dye allergy status; Z79.899 Other long term (current) drug therapy
CPT/HCPCS: 36415; 71046; 74176; 80048; 80053; 80202; 81003; 81015; 82607; 82746; 83690; 84702; 85014; 85018; 85025; 85652; 86140; 86644; 86645; 87040; 87045; 87046; 87086; 87493; 87899; 88305; 88342; 93005; 99156; 99223; 99233; 99282; A9270-GY; J0692; J2250; J2270; J2405; J2920; J3010; J3370

== ENCOUNTER 2020-06-05 12:55 | Inpatient (IN) ==
[2020-06-05] MEDS ORDERED: NS 0.9% 1000 ml BAG 1,000 ML IV ONE (13:38)
[2020-06-05 14:18] LABS: ABS Eosinophils 0.1 10^3/ul (0-0.6); ABS Monocytes 0.6 10^3/ul (0-0.8); Eosinophil % 2.5 %; Hematocrit 39 % (35-47); Hemoglobin 13.9 g/dL (12.0-16.0); Lymphocyte % 41.9 %; Mean Corpuscular HGB Conc 36 g/dL (31-36); Mean Corpuscular Hemoglobin 32 pg (27-31); Mean Corpuscular Volume 89 fL (80-97); Mean Platelet Volume 9.4 fL (7.4-10.4); Platelet Count 208 10^3/uL (150-450); Red Cell Distribution Width 13 % (10-15); White Blood Count 4.7 10^3/uL (3.5-10.8)
[2020-06-05 14:44] LABS: ALT 12 U/L (7-52); AST 14 U/L (13-39); Albumin 4.6 g/dL (3.2-5.2); Albumin/Globulin Ratio 1.4 (1-3); Alkaline Phosphatase 50 U/L (34-104); Anion Gap 9 mmol/L (2-11); Blood Urea Nitrogen 9 mg/dL (6-24); CO2 Carbon Dioxide 26 mmol/L (22-32); Chloride 103 mmol/L (101-111); EGFR African American 95.4 (>60); EGFR Non-African American 78.9 (>60); Globulin 3.4 g/dL (2-4); Glucose 94 mg/dL (70-100); HCG Pregnancy < 0.60 mIU/mL; Potassium 3.3 mmol/L (3.5-5.0); Sodium 138 mmol/L (135-145)
[2020-06-05 14:47] LABS: Urine Appearance Clear; Urine Bilirubin Negative (Negative); Urine Blood 2+ (Negative); Urine Color Yellow; Urine Glucose Negative (Negative); Urine Ketones Trace (Negative); Urine Nitrite Negative (Negative); Urine Protein Negative (Negative); Urine Specific Gravity 1.015 (1.010-1.030); Urine Urobilinogen Negative (Negative)
[2020-06-05 14:51] LABS: Urine Bacteria 1+ (Absent); Urine Red Blood Cell Trace(0-2/hpf) (Absent); Urine Squamous Epithelial Cell Present (Absent); Urine White Blood Cell Trace(0-5/hpf) (Absent)
[2020-06-05] MEDS ORDERED: methylPREDNISolone SOD 40 mg/ml 1 ml VIAL IV ONE (16:19)
[2020-06-05] MEDS ORDERED: Prochlorperazine 5 mg/ml 2 ml VIAL (10 mg) IV PRN (17:34)
[2020-06-05] MEDS: NS 0.9% 1000 ml BAG 1,000 ML IV SCH (20:23)
[2020-06-05] MEDS: KCL 10 MEQ/50 ML IVPREMIX 10 MEQ/50 ML BAG IV SCH ×2 (20:32→22:29)
[2020-06-05] MEDS: KCL 10 MEQ/50 ML IV SCH (22:36)
[2020-06-06] MEDS: KCL 10 MEQ/50 ML IV SCH (00:56)
[2020-06-06] MEDS: methylPREDNISolone SOD 40 mg/ml 1 ml VIAL IV SCH ×2 (02:51→15:08)
[2020-06-06] MEDS: NS 0.9% 1000 ml BAG 1,000 ML IV SCH ×2 (06:06→15:08)
[2020-06-06 06:56] LABS: ABS Lymphocytes 0.7 10^3/ul (1.0-4.8); ABS Monocytes 0.1 10^3/ul (0-0.8); ABS Neutrophils 2.1 10^3/ul (1.5-7.7); Hematocrit 38 % (35-47); Hemoglobin 13.6 g/dL (12.0-16.0); Lymphocyte % 23.6 %; Mean Corpuscular HGB Conc 36 g/dL (31-36); Mean Corpuscular Hemoglobin 31 pg (27-31); Mean Corpuscular Volume 88 fL (80-97); Mean Platelet Volume 9.3 fL (7.4-10.4); Platelet Count 199 10^3/uL (150-450); Red Blood Count 4.32 10^6 /uL (3.70-4.87); Red Cell Distribution Width 12 % (10-15); White Blood Count 2.9 10^3/uL (3.5-10.8)
[2020-06-06 07:08] LABS: BUN/Creatinine Ratio 13.6 (8-20); Calcium 9.8 mg/dL (8.6-10.3); EGFR African American 139.6 (>60); EGFR Non-African American 115.3 (>60); Potassium 3.9 mmol/L (3.5-5.0)
[2020-06-06] MEDS: Carbamide Peroxide 6.5% OTIC 15 ML BTL LEFT EAR SCH ×2 (09:24→19:34)
[2020-06-06] MEDS: Fluticasone NASAL SPRAY 50MCG 16 gm SPRAY BTL BOTH NARES SCH (09:24)
[2020-06-06] MEDS: Enoxaparin 40 MG/0.4 ML SYR SUBCUT SCH (17:32)
[2020-06-07] MEDS: NS 0.9% 1000 ml BAG 1,000 ML IV SCH ×4 (01:09→23:56)
[2020-06-07] MEDS: methylPREDNISolone SOD 40 mg/ml 1 ml VIAL IV SCH ×2 (04:05→16:06)
[2020-06-07 06:22] LABS: ABS Lymphocytes 1.6 10^3/ul (1.0-4.8); ABS Monocytes 0.5 10^3/ul (0-0.8); Eosinophil % 0.3 %; Hematocrit 37 % (35-47); Hemoglobin 13.1 g/dL (12.0-16.0); Lymphocyte % 38.4 %; Mean Corpuscular HGB Conc 35 g/dL (31-36); Mean Corpuscular Hemoglobin 31 pg (27-31); Mean Corpuscular Volume 88 fL (80-97); Mean Platelet Volume 9.2 fL (7.4-10.4); Nucleated Red Blood Cells % 0.1; Platelet Count 218 10^3/uL (150-450); Red Blood Count 4.24 10^6 /uL (3.70-4.87); Red Cell Distribution Width 12 % (10-15); White Blood Count 4.1 10^3/uL (3.5-10.8)
[2020-06-07 06:36] LABS: Calcium 9.6 mg/dL (8.6-10.3); Potassium 3.8 mmol/L (3.5-5.0)
[2020-06-07 06:42] LABS: BUN/Creatinine Ratio 14.5 (8-20); EGFR African American 116.5 (>60); EGFR Non-African American 96.3 (>60)
[2020-06-07] MEDS: Carbamide Peroxide 6.5% OTIC 15 ML BTL LEFT EAR SCH ×2 (07:23→20:09)
[2020-06-07] MEDS: Fluticasone NASAL SPRAY 50MCG 16 gm SPRAY BTL BOTH NARES SCH (07:24)
[2020-06-07] MEDS: Enoxaparin 40 MG/0.4 ML SYR SUBCUT SCH (16:06)
[2020-06-08] MEDS: methylPREDNISolone SOD 40 mg/ml 1 ml VIAL IV SCH ×2 (03:55→15:43)
[2020-06-08 08:39] LABS: ABS Lymphocytes 1.1 10^3/ul (1.0-4.8); ABS Monocytes 0.4 10^3/ul (0-0.8); ABS Neutrophils 2.9 10^3/ul (1.5-7.7); Hematocrit 38 % (35-47); Hemoglobin 13.5 g/dL (12.0-16.0); Lymphocyte % 25.6 %; Mean Corpuscular HGB Conc 36 g/dL (31-36); Mean Corpuscular Hemoglobin 31 pg (27-31); Mean Corpuscular Volume 87 fL (80-97); Mean Platelet Volume 9.2 fL (7.4-10.4); Nucleated Red Blood Cells % 0.1; Platelet Count 215 10^3/uL (150-450); Red Blood Count 4.36 10^6 /uL (3.70-4.87); Red Cell Distribution Width 12 % (10-15); White Blood Count 4.4 10^3/uL (3.5-10.8)
[2020-06-08 08:55] LABS: BUN/Creatinine Ratio 17.4 (8-20); Calcium 9.8 mg/dL (8.6-10.3); EGFR African American 116.5 (>60); EGFR Non-African American 96.3 (>60); Potassium 3.6 mmol/L (3.5-5.0)
[2020-06-08] MEDS: Fluticasone NASAL SPRAY 50MCG 16 gm SPRAY BTL BOTH NARES SCH (09:17)
[2020-06-08] MEDS: Carbamide Peroxide 6.5% OTIC 15 ML BTL LEFT EAR SCH ×2 (09:18→21:20)
[2020-06-08] MEDS: Enoxaparin 40 MG/0.4 ML SYR SUBCUT SCH ×2 (15:43→15:58)
[2020-06-08] MEDS: NS 0.9% 1000 ml BAG 1,000 ML IV SCH (15:43)
[2020-06-09] MEDS: methylPREDNISolone SOD 40 mg/ml 1 ml VIAL IV SCH (03:40)
[2020-06-09] MEDS: NS 0.9% 1000 ml BAG 1,000 ML IV SCH (05:57)
[2020-06-09 06:43] LABS: ABS Lymphocytes 2.2 10^3/ul (1.0-4.8); ABS Monocytes 0.6 10^3/ul (0-0.8); ABS Neutrophils 2.9 10^3/ul (1.5-7.7); Eosinophil % 0.2 %; Hematocrit 40 % (35-47); Hemoglobin 14.5 g/dL (12.0-16.0); Lymphocyte % 37.9 %; Mean Corpuscular HGB Conc 36 g/dL (31-36); Mean Corpuscular Hemoglobin 32 pg (27-31); Mean Corpuscular Volume 87 fL (80-97); Mean Platelet Volume 9.3 fL (7.4-10.4); Platelet Count 257 10^3/uL (150-450); Red Cell Distribution Width 12 % (10-15); White Blood Count 5.7 10^3/uL (3.5-10.8)
[2020-06-09 06:58] LABS: BUN/Creatinine Ratio 18.1 (8-20); Calcium 9.9 mg/dL (8.6-10.3); EGFR African American 110.9 (>60); EGFR Non-African American 91.7 (>60); Potassium 3.9 mmol/L (3.5-5.0)
[2020-06-09] MEDS: Carbamide Peroxide 6.5% OTIC 15 ML BTL LEFT EAR SCH (09:20)
[2020-06-09] MEDS: Fluticasone NASAL SPRAY 50MCG 16 gm SPRAY BTL BOTH NARES SCH (09:20)
[2020-06-09 12:48] VITALS: BP 95/52
[2020-06-09 16:58] LABS: Calprotectin >1000 mcg/g
[2020-06-10 22:31] LABS: CMV DNA DETECT/QT, P Undetected IU/mL (Undetected)
== END 2020-06-09 16:30 | disposition home or self-care (01) | DRG 387 ==
LOC: ED 12:55 → MED 16:59
PROVIDERS: ADMIT Internal Medicine; ATTEND Internal Medicine

== ENCOUNTER 2022-04-12 14:25 | Inpatient (IN) ==
[2022-04-12] MEDS ORDERED: Lactated Ringers 1000 ml BAG 1,000 ML IV ONE (14:34)
[2022-04-12 15:49] LABS: Hematocrit 40 % (35-47); Hemoglobin 13.5 g/dL (12.0-16.0); Mean Corpuscular HGB Conc 34 g/dL (31-36); Mean Corpuscular Hemoglobin 29 pg (27-31); Mean Corpuscular Volume 86 fL (80-97); Platelet Count 233 10^3/uL (150-450); Red Cell Distribution Width 13 % (10-15); White Blood Count 2.5 10^3/uL (3.5-10.8)
[2022-04-12 16:38] LABS: HCG Pregnancy < 0.60 mIU/mL
[2022-04-12 16:42] LABS: ABS Eosinophils 0.4 10^3/ul (0-0.6); ABS Lymphocytes 1.2 10^3/ul (1.0-4.8); ABS Monocytes 0.4 10^3/ul (0-0.8); ABS Neutrophils 0.4 10^3/ul (1.5-7.7); Eosinophil % 14.2 %; Nucleated Red Blood Cells % 0.1
[2022-04-12 16:46] LABS: ALT 7 U/L (7-52); AST 10 U/L (13-39); Albumin 4.2 g/dL (3.2-5.2); Albumin/Globulin Ratio 1.4 (1-3); Alkaline Phosphatase 49 U/L (35-149); Anion Gap 5 mmol/L (2-11); Blood Urea Nitrogen 6 mg/dL (6-24); CO2 Carbon Dioxide 24 mmol/L (22-32); Calcium 9.4 mg/dL (8.6-10.3); Chloride 107 mmol/L (101-111); Globulin 2.9 g/dL (2-4); Glucose 88 mg/dL (70-100); Potassium 3.8 mmol/L (3.5-5.0); Sodium 136 mmol/L (135-145); Total Protein 7.1 g/dL (6.4-8.9); eGFR CKD-EPI 104.4 (>60)
[2022-04-12] MEDS ORDERED: Morphine 2 MG/ML SYRINGE IV PRN (18:11)
[2022-04-12 18:13] LABS: Rapid COVID-19 Molecular Undetected (Undetected)
[2022-04-12] MEDS ORDERED: PEG 3000 GI LAVAGE 1 GALLON PO ONE (19:19)
[2022-04-12 19:42] LABS: C Reactive Protein 3.51 mg/L (<8.01)
[2022-04-12] MEDS: methylPREDNISolone SOD SUCC 40 mg/ml 1 ml VIAL IV SCH (22:09)
[2022-04-12] MEDS: Lactated Ringers 1000 ml BAG 1,000 ML IV SCH (22:10)
[2022-04-12] MEDS: Heparin 5000 UNITS/ML 1 mL VIAL SUBCUT SCH (22:10)
[2022-04-13] MEDS: methylPREDNISolone SOD SUCC 40 mg/ml 1 ml VIAL IV SCH ×4 (02:04→21:34)
[2022-04-13] MEDS: Lactated Ringers 1000 ml BAG 1,000 ML IV SCH (06:23)
[2022-04-13 06:24] LABS: Hematocrit 40 % (35-47); Hemoglobin 13.7 g/dL (12.0-16.0); Mean Corpuscular HGB Conc 34 g/dL (31-36); Mean Corpuscular Hemoglobin 29 pg (27-31); Mean Corpuscular Volume 85 fL (80-97); Mean Platelet Volume 9.2 fL (7.4-10.4); Platelet Count 272 10^3/uL (150-450); Red Blood Count 4.68 10^6 /uL (3.70-4.87); Red Cell Distribution Width 13 % (10-15); White Blood Count 1.4 10^3/uL (3.5-10.8)
[2022-04-13 06:57] LABS: ABS Lymphocytes 0.7 10^3/ul (1.0-4.8); ABS Monocytes 0.1 10^3/ul (0-0.8); ABS Neutrophils 0.6 10^3/ul (1.5-7.7); Eosinophil % 0.6 %; Lymphocyte % 50.5 %; Nucleated Red Blood Cells % 0.2
[2022-04-13] MEDS: Heparin 5000 UNITS/ML 1 mL VIAL SUBCUT SCH ×4 (07:02→22:27)
[2022-04-13 07:20] LABS: Calcium 10.4 mg/dL (8.6-10.3); eGFR CKD-EPI 116.4 (>60)
[2022-04-13] MEDS ORDERED: Midazolam 10 mg/10 ml VIAL 1 mg/ml 10 ml VIAL (10 mg) ONE (14:57)
[2022-04-13] MEDS ORDERED: fentaNYL 100 mcg/2 ml 50 MCG/ML VIAL ONE (14:57)
[2022-04-14] MEDS: methylPREDNISolone SOD SUCC 40 mg/ml 1 ml VIAL IV SCH ×3 (02:15→14:32)
[2022-04-14] MEDS: Heparin 5000 UNITS/ML 1 mL VIAL SUBCUT SCH ×3 (05:34→21:22)
[2022-04-14 06:38] LABS: ABS Lymphocytes 0.7 10^3/ul (1.0-4.8); ABS Monocytes 0.6 10^3/ul (0-0.8); ABS Neutrophils 2.2 10^3/ul (1.5-7.7); Eosinophil % 0.1 %; Hematocrit 39 % (35-47); Hemoglobin 13.7 g/dL (12.0-16.0); Lymphocyte % 20.5 %; Mean Corpuscular HGB Conc 35 g/dL (31-36); Mean Corpuscular Hemoglobin 30 pg (27-31); Mean Corpuscular Volume 86 fL (80-97); Mean Platelet Volume 9.3 fL (7.4-10.4); Platelet Count 307 10^3/uL (150-450); Red Blood Count 4.58 10^6 /uL (3.70-4.87); Red Cell Distribution Width 13 % (10-15); White Blood Count 3.5 10^3/uL (3.5-10.8)
[2022-04-14 06:55] LABS: Calcium 10.5 mg/dL (8.6-10.3); Potassium 4.3 mmol/L (3.5-5.0); eGFR CKD-EPI 107.9 (>60)
[2022-04-14] MEDS: Hydrocortisone ENEMA 100 MG BTL PR SCH (18:00)
[2022-04-15] MEDS: Heparin 5000 UNITS/ML 1 mL VIAL SUBCUT SCH ×2 (06:19→13:50)
[2022-04-15] MEDS: methylPREDNISolone SOD SUCC 40 mg/ml 1 ml VIAL IV SCH ×2 (10:06→21:02)
[2022-04-15] MEDS: Hydrocortisone ENEMA 100 MG BTL PR SCH (10:06)
[2022-04-15 10:11] LABS: Vitamin D Total 25(OH) 21.2 ng/mL (20-50)
[2022-04-15 10:55] LABS: Calcium (PTH Intact) 9.9 mg/dL (8.6-10.3)
[2022-04-15] MEDS ORDERED: Hydrocortisone ENEMA 100 MG BTL PR SCH (21:00)
[2022-04-15 21:36] LABS: HDL Cholesterol 60.1 mg/dL
[2022-04-16 06:04] LABS: Hematocrit 44 % (35-47); Hemoglobin 14.6 g/dL (12.0-16.0); Mean Corpuscular HGB Conc 33 g/dL (31-36); Mean Corpuscular Hemoglobin 29 pg (27-31); Mean Corpuscular Volume 87 fL (80-97); Mean Platelet Volume 9.3 fL (7.4-10.4); Platelet Count 313 10^3/uL (150-450); Red Blood Count 5.05 10^6 /uL (3.70-4.87); Red Cell Distribution Width 13 % (10-15); White Blood Count 6.1 10^3/uL (3.5-10.8)
[2022-04-16] MEDS ORDERED: Enoxaparin 40 MG/0.4 ML SYR SUBCUT SCH (08:00)
[2022-04-16 08:03] VITALS: BP 118/65
[2022-04-16] MEDS: methylPREDNISolone SOD SUCC 40 mg/ml 1 ml VIAL IV SCH (09:50)
[2022-04-16 10:18] LABS: Albumin 4.5 g/dL (3.2-5.2); Albumin/Globulin Ratio 1.3 (1-3); Calcium 10.4 mg/dL (8.6-10.3); Globulin 3.4 g/dL (2-4); Potassium 4.1 mmol/L (3.5-5.0); Total Bilirubin 0.5 mg/dL (0.2-1.0); Total Protein 7.9 g/dL (6.4-8.9); eGFR CKD-EPI 104.4 (>60)
== END 2022-04-16 13:00 | disposition home or self-care (01) | DRG 385 ==
LOC: ED 14:25 → SUATTDRO 17:49 → EDHOLD 17:49 → MEDTELE 19:57
PROVIDERS: ADMIT Hospitalist; ATTEND Student in an Organized Health Care Education/Training Program